=== PATIENT | female | born 1990 | race Two or more races ===

== ENCOUNTER 2020-01-08 15:20 | Emergency (ER) | payer OTHER, SELFPAY ==
[2020-01-08 15:23] VITALS: BP 146/88; PULSE 110; RESP 24; TEMP 36.9; O2SAT 95; BMI 35.4
--- NOTE | 2020-01-08 17:02 | ED.ASTHMA ---
HPI - Asthma General Chief Complaint: Asthma Stated Complaint: asthma Time Seen by Provider: 01/08/20 17:02 Source: patient Mode of arrival: ambulatory Limitations: no limitations History of Present Illness HPI Narrative: Patient states her allergies started yesterday now wheezing MD complaint: wheezing Onset (ago): day(s) (1) Severity: mild Context: allergen exposure Treatments Prior to Arrival: inhaled bronchodilator and inhaled steroid Related Data Previous Rx's Medication Instructions Recorded prednisone 60 mg PO DAILY #15 tab 01/08/20 Allergies Allergy/AdvReac Type Severity Reaction Status Date / Time latex Allergy Unknown rash Uncoded 07/08/19 00:00 SEAFOOD Allergy Unknown ANAPHYLAXIS Uncoded 12/11/19 17:08 Review of Systems Constitutional: Constitutional: Reports no additional constitutional complaints Eyes: Eyes: Reports no additional eye complaints ENT: Denies dizziness Cardiovascular: Cardiovascular: Reports no additional cardiovascular complaints Respiratory: Respiratory: Reports as per HPI Gastrointestinal: Gastrointestinal: Reports no additional gastrointestinal complaints Genitourinary: Genitourinary: Reports no additional female genitourinary complaints Musculoskeletal: Musculoskeletal: Reports no additional musculoskeletal complaints Integumentary/Breasts: Skin/Breast: Denies rash Neurologic: Reports system reviewed and no additional complaints, except as documented, Denies dizziness and Denies Sensory deficit (Neuro) Psychiatric: Psychiatric: Denies anxiety [facility] Past Medical History Medical History (Updated 01/08/20 @ 18:52 by Ulises De Anda MD) Asthma Social History Social History Smoking Status: Never smoker Use of substances other than those prescribed or required for medical reasons: No Advance Directives: No Advance Directives Information Provided: No Physical Exam Vital Signs: Vital Signs: Vital Signs Temp Pulse Resp BP Pulse Ox 01/08/20 17:17 101 H 20 96 01/08/20 15:23 98.5 F 110 H 24 H 146/88 H 95 Body Mass Index 35.4 Const: General: healthy appearing Nutritional Appearance: overweight Orientation/consciousness: oriented to person and patient oriented x3 Limitations: no limitations HENMT: Head: Yes normal to inspection Ears: external ears normal General nose exam: Normal external nose present Mouth: Normal oral and palatal mucosa present and oropharynx normal Throat: Yes posterior oropharynx normal Eyes: General: appearance normal, both eyes and all related structures Neck: Other: supple Neck: Yes normal visual inspection Chest: Chest palpation & inspection: normal inspection of the chest Resp: Other: diffuse wheezing Auscultation: wheezes Cardio: Jugular venous distension: no JVD Rate: regular rate Rhythm: regular rhythm Heart sounds: S1 normal heart sound present and S2 normal heart sound present GI: Inspection: Yes normal to inspection Palpation (GI): Soft to palpation, nontender and No hepatosplenomegaly present Auscultation: normal bowel sounds : General: Yes no CVA tenderness Back/Spine/Pelvis: Back: no CVA tenderness Skin: General skin exam: no rashes or lesions noted Neuro: General: oriented to person and patient oriented x3 Cranial nerves: Yes CN's II-XII intact bilaterally Motor exam (neuro): 5/5 motor strength present throughout Sensory Exam: No Sensory deficit (Neuro) Extrem: General: Yes normal to inspection Psych: Appearance: grossly normal Course Course Course Narrative: still wheezing Reevaluation(s) Reevaluation #1: breathing much improved Time: 18:50 MDM - Asthma MDM Narrative Medical decision making narrative: Patient with asthma exacerbation will dc home Differential Diagnosis Differential diagnosis: Likely Acute exacerbation Discharge Plan Discharge Clinical Impression: Asthma with acute exacerbation Qualifiers: Asthma severity: mild Asthma persistence: persistent Qualified Code(s): J45.31 - Mild persistent asthma with (acute) exacerbation Patient Disposition: Home, Self-Care Instructions: Asthma (ED) Prescriptions: New prednisone 20 mg tablet 60 mg PO DAILY Qty: 15 RF: 0 Referrals: Lalita Rg MD [Primary Care Provider] - 2 days
[2020-01-08] MEDS: predniSONE 20 MG TABLET 60 MG PO (17:15)
[2020-01-08 17:17] VITALS: PULSE 101; RESP 20; O2SAT 96
[2020-01-08] MEDS: Albuterol/Iprat 2.5/0.5MG 3 ML AMPUL.NEB INHALE (17:23)
[2020-01-08] MEDS: Albuterol Sulfate (0.083%) 2.5 MG/3 ML VIAL.NEB INHALE (18:19)
[2020-01-08 19:05] VITALS: PULSE 110; RESP 16; TEMP 36.4
== END 2020-01-08 19:03 | disposition home or self-care (01) ==
PROVIDERS: Emergency Provider Emergency Medicine; PCP Internal Medicine
DX: J45.31 Mild persistent asthma with (acute) exacerbation (principal)
CPT/HCPCS: 99284

== ENCOUNTER → 2020-01-20 15:36 | Outpatient (BNVA) | payer OTHER, SELFPAY | PROVIDERS: PCP Internal Medicine; Referring Provider Internal Medicine; Visit Provider Hospitalist | DX: J45.40 Moderate persistent asthma, uncomplicated (principal); Z23 Encounter for immunization | CPT/HCPCS: 90686; 99212 ==

== ENCOUNTER 2020-02-26 10:58 | Outpatient (REF) | payer OTHER, SELFPAY | END 2020-02-26 10:59 | disposition home or self-care (01) | LOC: HO.LAB 10:58 | PROVIDERS: Visit Provider Nurse Practitioner Family | DX: Z20.828 Contact with and (suspected) exposure to other viral communicable diseases (principal); J04.0 Acute laryngitis | CPT/HCPCS: U0003 ==

== ENCOUNTER → 2020-06-03 14:38 | Outpatient (BNVA) | payer OTHER, SELFPAY | PROVIDERS: PCP Internal Medicine; Visit Provider Hospitalist | DX: J45.40 Moderate persistent asthma, uncomplicated (principal); J30.9 Allergic rhinitis, unspecified; Z79.51 Long term (current) use of inhaled steroids | CPT/HCPCS: 99212 ==

== ENCOUNTER → 2021-02-03 15:21 | Outpatient (BNVA) | payer OTHER, SELFPAY | PROVIDERS: PCP Internal Medicine; Visit Provider Hospitalist | DX: J45.40 Moderate persistent asthma, uncomplicated (principal); J30.9 Allergic rhinitis, unspecified; L30.9 Dermatitis, unspecified | CPT/HCPCS: 90686; 99212 ==

== ENCOUNTER → 2021-06-30 15:31 | Outpatient (BNVA) | payer OTHER, SELFPAY | PROVIDERS: PCP Internal Medicine; Visit Provider Hospitalist | DX: J45.40 Moderate persistent asthma, uncomplicated (principal); J30.9 Allergic rhinitis, unspecified; L30.9 Dermatitis, unspecified | CPT/HCPCS: 99212 ==

== ENCOUNTER 2023-02-27 15:17 | Outpatient (AMB) | payer OTHER, SELFPAY ==
[2023-02-27 15:30] VITALS: BP 126/80; PULSE 65; O2SAT 100; BMI 31.7
--- NOTE | 2023-02-27 15:30 | MHC.PC.OV ---
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 Required: No Allergies latex Allergy (Intermediate, Verified 02/27/23 15:42) Rash seafood Allergy (Intermediate, Verified 02/27/23 15:42) tracheal swelling Medication List - Last Reconciled 02/27/23 by RALF Puckett albuterol sulfate 2.5 mg (3 mL) inhalation Q6H PRN 30 days albuterol sulfate 90 mcg/actuation 2 puffs PO Q4H PRN 30 days NS azelastine 2 sprays intranasal BID 30 days cetirizine 10 mg PO DAILY 30 days epinephrine (EpiPen 2-Cristiano) 0.3 mg (0.3 mL) IM Q10M PRN 30 days montelukast 10 mg PO BEDTIME Symbicort 160-4.5 mcg/actuation (budesonide-formoterol) 2 puffs PO BID NS umeclidinium 62.5 mcg/actuation (Incruse Ellipta) 1 inh PO DAILY Tobacco use date assessed: 02/27/23 Dental Screening Dental Screen Date: 02/27/23 Did you have a dental visit in the last 12 months?: Yes Did you have a dental problem in the last 6 months where you did not have access to dental care?: No Was dental information given to patient?: Patient has dentist HPI annual pe HPI Details Patient is a 32-year-old female who presents today for physical exam. Patient of Dr. Chapman. Medical history significant for asthma - followed by Dr. Amezcua, chronic allergic rhinitis. Today we discussed patient's need for cervical cancer screening. Patient reports that she has IUD for the past 10 years and needs to be changed. Denies shortness of breath or chest pain. No other concerns. FORMERLY [facility], [facility] Medical History Eczema Chronic allergic rhinitis Asthma Asthma Surgical History No pertinent past surgical history Family History Father Diabetes Mother In good health Maternal Grandmother Glaucoma CVD (cardiovascular disease) Diabetes Hypertension Maternal Grandfather Glaucoma Diabetes Hypertension Social History Housing: Apartment Alcohol intake: current Alcohol intake frequency: holidays/special occasions only Alcohol type: beer Patient Tobacco Use Status: Never used Tobacco e-Cigarette/Vaping Use: Never Used Second Hand Smoke Exposure: No service: No Current occupational status: employed Current occupational exposures/hazards: No Cognitive needs: No Hearing needs: No Vision needs: No Questionnaire PHQ-9 Over the last 2 weeks, how often have you been bothered by any of the following problems? 1. Little interest or pleasure in doing things: not at all 2. Feeling down, depressed, or hopeless: not at all 3. Trouble falling or staying asleep, or sleeping too much: not at all 4. Feeling tired or having little energy: not at all 5. Poor appetite or overeating: not at all 6. Feeling bad about yourself - or that you are a failure or have let yourself or your family down: not at all 7. Trouble concentrating on things, such as reading the newspaper or watching television: not at all 8. Moving or speaking so slowly that other people could have noticed. Or the opposite - being so fidgety or restless that you have been moving around a lot more than usual: not at all 9. Thoughts that you would be better off or of hurting yourself in some way: not at all Total score: 0 Depression Screening Interpretation: Negative Depression Screening Done: Yes 11578 - PHQ-9 Billing: Yes Source: Developed by Drs. Sarmad Lewis, Haritha Barvo, Arden Marcano and colleagues, with an educational get from [employer]. Thrive Questionnaire Date Thrive assessed: 02/27/23 I am a: Patient What is your living situation today?: I have a steady place to live Within the past 12 months, did the food you bought not last and you didn't have the money to get more?: Never true Within the past 12 months, did you worry whether your food would run out before you got money to buy more?: Never true Currently or been in a relationship where the following occur: no concerns reported STEPHANIE-7 AMB Questionnaire STEPHANIE-7 Date STEPHANIE - 7 assessed: 02/27/23 Feeling nervous, anxious, or on edge: 0 = Not at all Not being able to stop or control worryin = Not at all Worrying too much about different things: 0 = Not at all Trouble relaxin = Not at all Being so restless that it is hard to sit still: 0 = Not at all Becoming easily annoyed or irritable: 0 = Not at all Feeling afraid as if something awful might happen: 0 = Not at all Total STEPHANIE-7 score (0-4 normal; 5-9 mild; 10-14 moderate; 15-21 severe): 0 Source: Developed by Drs. Sarmad Lewis, Haritha Bravo, Arden Marcano and colleagues, with an educational get from [employer]. STEPHANIE-7 Assessment Billing STEPHANIE-7 Assessment Tool: STEPHANIE-7 Assessment [id number] Review of Systems Const Denies body aches, Denies chills, Denies fever(s) and Denies headache(s) Eyes Denies change in vision ENT Denies dizziness, Denies otalgia, Denies headache(s), Denies nasal discharge, Denies sinus pain and Denies sore throat Card Denies chest pain, Denies edema, Denies lightheadedness and Denies dyspnea Resp Denies cough, Denies dyspnea and Denies wheezing GI Denies abdominal pain, Denies constipation, Denies diarrhea, Denies nausea and Denies vomiting Denies dysuria Musc Denies myalgias Skin/Breast Denies rash Neuro Denies dizziness and Denies headache(s) Aller/Immun Denies wheezing Physical exam (Primary Care) Vital Signs: Last Vital Signs Pulse 65 02/27/23 15:30 BP 126/80 02/27/23 15:30 Pulse Ox 100 02/27/23 15:30 Oxygen Delivery Method Room Air 02/27/23 15:30 BMI result Body Mass Index 31.7 Tobacco/Smoking Status: Tobacco use Status Tobacco use date assessed 02/27/23 02/27/23 15:34 Patient Tobacco Use Status Never used Tobacco 02/27/23 15:34 e-Cigarette/Vaping Use Never Used 02/27/23 15:34 PHQ-9: PHQ-9 Score PHQ-9: Total score 0 02/27/23 15:57 Depression Screening Interpretation: Negative Thrive Assessment: Date of Thrive Assessment Date Thrive assessed 02/27/23 02/27/23 15:34 Currently or been in a relationship where the following occur: no concerns reported Const General: cooperative and no acute distress Orientation/consciousness: patient oriented x3 HENMT Other: Whisper test: Pass Head: Yes normocephalic and Yes atraumatic Ears: TM's normal bilaterally Face and sinus: Yes sinuses nontender Mouth: oropharynx normal and moist mucous membranes Throat: Yes posterior oropharynx normal Eyes General: appearance normal, both eyes and all related structures Pupils: Equal, round and reactive pupils present EOM: EOMs intact bilaterally Neck Neck: Yes normal visual inspection, Yes full ROM and Yes no lymphadenopathy Thyroid: Thyroid normal Resp Effort & Inspection: normal respiratory effort and able to speak in complete sentences Auscultation: clear to auscultation bilaterally, no crackles, no rales, no rhonchi and no wheezes Cardio Rate: regular rate Rhythm: regular rhythm Heart sounds: S1 normal heart sound present, S2 normal heart sound present and no murmurs GI Palpation (GI): Soft to palpation, not firm, nontender, no guarding, not rigid and no hepatosplenomegaly Auscultation: normal bowel sounds General: No CVA tenderness Back/Spine/Pelvis Back: No CVA tenderness Skin General skin exam: no rashes or lesions noted Neuro General: patient oriented x3 Cranial nerves: Yes Equal, round and reactive pupils present Gait exam (Neuro): Normal gait present Extrem General: Yes full ROM and No edema Office Procedures Vision Screening Right Eye: 20/20 Left Eye: 20/20 Bilateral: 20/20 Color: Pass Corrected: Pass Steropsis: Pass Overall Vision Screening Results: Pass Comments: none [id number] - Vision Screening Flu Questionnaire Does the patient have a severe egg allergy?: No Does the patient have severe life threatening allergies?: No Does the patient have a fever or illness today?: No Has the patient ever had Guillain-[place] Syndrome?: No Has the patient ever had any past reaction to a flu shot?: No Immunizations flu vacc [id number] 6mos up(PF) 60 mcg(15 mcgx4)/0.5 mL IM syringe Performing Provider: RALF Puckett Performing Location: [facility] Administered by: MCKENNA Peterson on 02/27/23 16:11 Dose Route Admin Location Dispensed Lot Number Expiration Date NDC Seismic Prospecting Supervisor 0.5 mL IM Left Deltoid 0.5 mL [id number] 09/23/23 [id number] Secure [employer] VIS Given Date VIS Provided VIS Publication Date 02/27/23 Single Vaccine 20 Eligibility Eligibility Date Funding Source Not [place] Eligible 02/27/23 Private Assessment and Plan Assessment & Plan (1) Presence of IUD: Code(s): Z97.5 - Presence of (intrauterine) contraceptive device Plan: Crew Person referral (2) Cervical cancer screening: Code(s): Z12.4 - Encounter for screening for malignant neoplasm of cervix Plan: Crew Person referral (3) Physical exam: Code(s): Z00.00 - Encounter for general adult medical examination without abnormal findings Plan: Repeat in 1 year Blood work ordered (4) Asthma: Code(s): J45.909 - Unspecified asthma, uncomplicated Qualifiers: Asthma severity: moderate Asthma persistence: persistent Asthma complication type: uncomplicated Qualified Code(s): J45.40 - Moderate persistent asthma, uncomplicated Plan: Stable with current treatment Continue to follow-up with pulmonology Dr. Amezcua Orders: Orders Complete Blood Count Auto Diff Today Z00.00 - Encounter for general adult medical examination without abnormal findings AMB Vision Screening Today Z01.00 - Encounter for examination of eyes and vision without abnormal findings TSH reflex Free T4 Today Z00.00 - Encounter for general adult medical examination without abnormal findings Lipid Panel Today Z00.00 - Encounter for general adult medical examination without abnormal findings Comprehensive Hooker. Panel Fast Today Z00.00 - Encounter for general adult medical examination without abnormal findings Influenza [id number] Immunization Today Z23 - Encounter for immunization Referrals CRISIS INTERVENTION SPECIALIST Referral Z12.4 - Encounter for screening for malignant neoplasm of cervix, Z97.5 - Presence of (intrauterine) contraceptive device Coding Level of Care Code Est Pt Prev Care 18-39y(23201) Diagnoses Presence of IUD Z97.5 Cervical cancer screening Z12.4 Physical exam Z00.00 Moderate persistent asthma without complication J45.40 Asthma severity: moderate Asthma persistence: persistent Asthma complication type: uncomplicated CPT Codes Vision Screening - Vision Screenin - Vision Screening ([id number]) Additional Codes STEPHANIE-7 Assessment Billing - STEPHANIE-7 Assessment Tool: STEPHANIE-7 Assessment [id number] ([id number])
== END 2023-02-27 16:10 | disposition home or self-care (01) ==
PROVIDERS: PCP Internal Medicine; Visit Provider Nurse Practitioner Family
DX: Z00.00 Encounter for general adult medical examination without abnormal findings (principal); J45.40 Moderate persistent asthma, uncomplicated; Z97.5 Presence of (intrauterine) contraceptive device; Z23 Encounter for immunization; Z01.00 Encounter for examination of eyes and vision without abnormal findings
CPT/HCPCS: 90471; 90686; 99173; 99395

== ENCOUNTER 2023-04-08 11:47 | Emergency (ER) | payer OTHER, SELFPAY ==
--- NOTE | 2023-04-08 13:10 | ED_ITS ---
HPI - Nausea/Vomiting/Diarrhea General Chief complaint: Abdominal Pain Stated complaint: vomiting, ?food poisoning Related Data Previous Rx's Medication Instructions Recorded epinephrine 0.3 mg/0.3 mL 0.3 mg (0.3 mL) IM Q10M PRN 06/03/20 injection, auto-injector (EpiPen anaphylaxis 30 days #2 ea 2-Cristiano) azelastine 137 mcg (0.1 %) nasal 2 spray intranasal BID 30 days #30 02/03/21 spray aerosol mL albuterol sulfate 2.5 mg/3 mL 2.5 mg (3 mL) inhalation Q6H PRN 06/30/21 (0.083 %) solution for nebulization shortness of breath or wheezing 30 days #180 mL albuterol sulfate 90 mcg/actuation 2 puff PO Q4H PRN for wheezing 30 01/24/22 aerosol inhaler days #1 ea montelukast 10 mg tablet 10 mg PO BEDTIME #90 tabs 06/22/22 umeclidinium 62.5 mcg/actuation 1 inh PO DAILY #90 ea 07/03/22 blister powder for inhalation (Incruse Ellipta) Symbicort 160 mcg-4.5 2 puff PO BID #30.6 ea 08/09/22 mcg/actuation HFA aerosol inhaler (budesonide-formoterol) cetirizine 10 mg tablet 10 mg PO DAILY 30 days #30 tabs 03/03/23 Allergies Allergy/AdvReac Type Severity Reaction Status Date / Time latex Allergy Intermediate Rash Verified 02/27/23 15:42 seafood Allergy Intermediate tracheal Verified 02/27/23 15:42 swelling PMFSH Past Medical History Onset Date is defined in the Problem List Problems that require an onset date and time if occurred within 24 hrs of arrival to the ED Aortic Dissection and Rupture; Neurologic impairment; Cardiopulmonary Arrest; Endotracheal Intubation; Insertion or Replacement of Mechanical Circulatory Assist Device Medical History Eczema Chronic allergic rhinitis Asthma Asthma Surgical History No pertinent past surgical history Family History Family History Father Diabetes Mother In good health Maternal Grandmother Glaucoma CVD (cardiovascular disease) Diabetes Hypertension Maternal Grandfather Glaucoma Diabetes Hypertension Social History Social History Housing: Apartment Alcohol intake: current Alcohol intake frequency: holidays/special occasions only Alcohol type: beer Patient Tobacco Use Status: Never used Tobacco e-Cigarette/Vaping Use: Never Used Second Hand Smoke Exposure: No Advance Directives: No Advance Directives Information Provided: No service: No Current occupational status: employed Current occupational exposures/hazards: No Cognitive needs: No Hearing needs: No Vision needs: No Physical Exam 2 Vital Signs: Vital Signs: Last Vital Signs Temp 98.5 F 04/08/23 13:12 Pulse 65 04/08/23 13:12 Resp 16 04/08/23 13:12 BP 117/76 04/08/23 13:12 Pulse Ox 100 04/08/23 13:12 O2 Del Method Room Air 04/08/23 13:12 BMI result Body Mass Index 31.9 Course Course Course Narrative: This is an RME: Additional HPI, ROS, PE not included below will be deferred to primary provider. This is a 20-yrpw-jdd-female, with a hx of asthma, presenting to the ER with a complaint of nausea, vomiting since 1:00AM this morning. She ate pizza and chicken wings last night. Unable to tolerate PO. VSS. actiely vomiting in triage Plan: Labs, UA, medicated with zofran in triage Medications Administered Discontinued Medications Generic Name Dose Route Start Last Admin Trade Name Yissel PRN Reason Stop Dose Admin Ondansetron HCl 4 mg 04/08/23 13:12 04/08/23 13:20 Ondansetron Hcl 4 Mg/2 Ml Vial IVPUSH 04/08/23 13:13 Not Given ONCE ONE Ondansetron HCl 4 mg 04/08/23 13:18 04/08/23 13:20 Ondansetron Odt 4 Mg Tab.Rapdis TRANSLINGU 04/08/23 13:19 4 mg ONCE ONE Administration Medical Decision Making Lab Data 04/08/23 13:33 04/08/23 13:33 Labs: Lab Results 04/08/23 Range/Units 13:33 WBC 10.6 (4.8-10.8) X10*3/uL RBC 4.84 (4.20-5.50) X10*6/uL Hgb 14.7 (12.0-16.0) g/dl Hct 43.7 (37.0-47.0) % MCV 90.3 (80.0-98.0) fL MCH 30.4 (27.0-33.0) pg MCHC 33.6 (31.0-35.0) g/dl RDW 12.4 (11.0-16.0) % Plt Count 393 (160-400) X10*3/uL MPV 9.0 L (9.4-12.3) fL Immature Gran % (Auto) 0.2 (0.0-0.4) % Neut % (Auto) 89.7 H (45-73) % Lymph % (Auto) 7.5 L (20-40) % Harnett % (Auto) 2.0 (2-11) % Eos % (Auto) 0.1 (0-4) % Baso % (Auto) 0.5 (0-2) % Lymph # (Auto) 0.8 L (1.2-4.9) X10*3/uL Harnett # (Auto) 0.2 (0.1-1.2) X10*3/uL Eos # (Auto) 0.0 (0.0-0.4) X10*3/uL Baso # (Auto) 0.1 (0.0-0.2) X10*3/uL Abs Immat Gran (auto) 0.02 (0.00-0.03) X10*3/uL Absolute Neuts (auto) 9.5 H (2.0-8.3) x10*3/uL Absolute Nucleated RBC 0.000 (0.0-0.012) X10*3/uL Nucleated RBC % (auto) 0.0 (0.0-0.2) /100WBC Sodium 141 (135-145) mmol/L Potassium 4.1 (3.3-5.1) mmol/L Chloride 106 (96-108) mmol/L Carbon Dioxide 23 (22-29) mmol/L Anion Gap 16 (12-20) BUN 15 (9-16) mg/dL Creatinine 0.84 (0.5-1.4) mg/dL Estim Creat Clear Calc 96.4 Estimated GFR > 60 Random Glucose 119 H (60-115) mg/dL Calcium 10.0 (8.4-10.2) mg/dL Total Bilirubin 0.5 (0.0-1.0) mg/dL Direct Bilirubin 0.2 (0.0-0.5) mg/dL AST 16 (5-31) U/L ALT 18 (0-31) U/L Alkaline Phosphatase 62 (39-117) U/L Troponin I High Sens < 2.7 (<3.5-17.0) ng/L Total Protein 8.0 (6.5-8.0) g/dL Albumin 4.7 (3.5-5.0) g/dL Lipase 15 (8-78) U/L Beta HCG, Quant < 2 mIU/mL Discharge Plan Discharge Clinical Impression: Nausea & vomiting Patient Disposition: Left W/O Completing Treatment Prescriptions: No Action albuterol sulfate 90 mcg/actuation HFA aerosol inhaler 2 puff PO Q4H PRN (Reason: for wheezing) 30 Days Qty: 1 11RF montelukast 10 mg tablet 10 mg PO BEDTIME Qty: 90 3RF Incruse Ellipta 62.5 mcg/actuation blister with device 1 inh PO DAILY Qty: 90 3RF budesonide-formoterol [Symbicort] 160-4.5 mcg/actuation HFA aerosol inhaler 2 puff PO BID Qty: 30.6 3RF cetirizine 10 mg tablet 10 mg PO DAILY 30 Days Qty: 30 11RF epinephrine [EpiPen 2-Cristiano] 0.3 mg/0.3 mL auto-injector 0.3 mg IM Q10M PRN (Reason: anaphylaxis) 30 Days Qty: 2 6RF Rx Instructions: for 2 doses azelastine 137 mcg (0.1 %) aerosol,spray 2 spray intranasal BID 30 Days Qty: 30 6RF Rx Instructions: administer into each nostril albuterol sulfate 2.5 mg /3 mL (0.083 %) solution for nebulization 2.5 mg inhalation Q6H PRN (Reason: shortness of breath or wheezing) 30 Days Qty: 180 11RF Discharge Date/Time: 04/08/23 21:54
[2023-04-08 13:12] VITALS: BP 117/76; PULSE 65; RESP 16; TEMP 36.9; O2SAT 100; BMI 31.9
--- NOTE | 2023-04-08 13:12 | ECG_ITS ---
Test Reason : EPIGASTRIC PAIN Blood Pressure : / mmHG Vent. Rate : 062 BPM Atrial Rate : 062 BPM P-R Int : 144 ms QRS Dur : 080 ms QT Int : 458 ms P-R-T Axes : 069 058 043 degrees QTc Int : 464 ms Normal sinus rhythm with sinus arrhythmia Normal ECG No previous ECGs available Referred By: Liza Franklin Electronically Signed By:ROSA JAMES
[2023-04-08] MEDS: Ondansetron ODT 4 MG TAB.RAPDIS TRANSLINGU (13:20)
[2023-04-08 13:38] LABS: MANUAL DIFF FLAG NO
[2023-04-08 13:39] LABS: Basophils Absolute Auto 0.1 X10*3/uL (0.0-0.2); Basophils Percent Auto 0.5 % (0-2); Eosinophils Percent Auto 0.1 % (0-4); Hematocrit 43.7 % (37.0-47.0); Hemoglobin 14.7 g/dl (12.0-16.0); Imm Gran Abs Auto 0.02 X10*3/uL (0.00-0.03); Imm Gran Pct Auto 0.2 % (0.0-0.4); Lymphocytes Absolute Auto 0.8 X10*3/uL (1.2-4.9); Lymphocytes Percent Auto 7.5 % (20-40); Mean Corpuscular HGB Conc 33.6 g/dl (31.0-35.0); Mean Corpuscular Hemoglobin 30.4 pg (27.0-33.0); Mean Corpuscular Volume 90.3 fL (80.0-98.0); Monocytes Absolute Auto 0.2 X10*3/uL (0.1-1.2); Neutrophils Absolute Auto 9.5 x10*3/uL (2.0-8.3); Neutrophils Percent Auto 89.7 % (45-73); Platelet Count 393 X10*3/uL (160-400); Red Blood Count 4.84 X10*6/uL (4.20-5.50); Red Cell Distribution Width 12.4 % (11.0-16.0); White Blood Count 10.6 X10*3/uL (4.8-10.8)
[2023-04-08 14:02] LABS: Alanine Aminotransferase 18 U/L (0-31); Albumin Level 4.7 g/dL (3.5-5.0); Alkaline Phosphatase 62 U/L (39-117); Anion Gap 16 (12-20); Aspartate Amino Transferase 16 U/L (5-31); Bilirubin Direct 0.2 mg/dL (0.0-0.5); Bilirubin Total 0.5 mg/dL (0.0-1.0); Blood Urea Nitrogen 15 mg/dL (9-16); Carbon Dioxide 23 mmol/L (22-29); Chloride 106 mmol/L (96-108); Creatinine Clr Calc Pharmacy 96.4; Estimated Glomerular Filt Rate > 60; Glucose Random 119 mg/dL (60-115); HCG Quantitative < 2 mIU/mL; Lipase 15 U/L (8-78); Potassium 4.1 mmol/L (3.3-5.1); Sodium 141 mmol/L (135-145); Troponin-I High Sensitivity < 2.7 ng/L (<3.5-17.0)
--- NOTE | 2023-04-08 21:54 | PC.NURSE ---
Called in WR x2 @[phone] with no answer
== END 2023-04-08 21:54 | disposition left against medical advice (07) ==
PROVIDERS: Physician Assistant Medical; Emergency Provider Emergency Medicine; PCP Internal Medicine
DX: R11.2 Nausea with vomiting, unspecified (principal); J45.909 Unspecified asthma, uncomplicated; Z79.899 Other long term (current) drug therapy
CPT/HCPCS: 36415; 80048; 80076; 83690; 84484; 84702; 85025; 93005; 99283

== ENCOUNTER → 2023-04-08 13:12 | Outpatient (BNV) | payer OTHER, SELFPAY | PROVIDERS: Emergency Provider Emergency Medicine; PCP Internal Medicine; Visit Provider Internal Medicine | DX: R10.13 Epigastric pain (principal); R11.2 Nausea with vomiting, unspecified | CPT/HCPCS: 93010 ==

== ENCOUNTER 2023-05-11 14:38 | Outpatient (AMB) | payer OTHER, SELFPAY ==
--- NOTE | 2023-05-11 14:44 | A.OFFVIS_ITS ---
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 Doing well with no concerns. She tries to eat healthy and stays active with exercise. Regular monthly menses. Uses the ParaGard for control which is now 10 years old, she is interested in having an exchange scheduled. Currently is sexually active. She denies vaginal itching and irritation. STI screening offered; she accepts. Denies family history of ovarian or colon cancer. Remote FH of breast cancer. Last pap smear 2019, negative. [facility] Medical History Eczema Chronic allergic rhinitis Asthma Surgical History No pertinent past surgical history Family History Father Diabetes Mother In good health Maternal Grandmother Glaucoma CVD (cardiovascular disease) Diabetes Hypertension Maternal Grandfather Glaucoma Diabetes Hypertension Family/Other Breast cancer Social History Household Members: Spouse and Children Housing: House Alcohol intake: current Alcohol intake frequency: holidays/special occasions only Alcohol type: beer Patient Tobacco Use Status: Never used Tobacco e-Cigarette/Vaping Use: Never Used Second Hand Smoke Exposure: No service: No 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 Sexual orientation: Straight/Heterosexual Gender identity: Female Cognitive needs: No Hearing needs: No Vision needs: No Female Reproductive History Menstrual Age of Menarche: 10 Duration of menses: 3-5 days Date of last menstrual period: 05/01/23 control method: copper IUCD Total pregnancies: 2 Full term: 2 Number of Living Children: 2 Date of last pap smear: 04/15/19 Review of Systems Const All systems reviewed & are unremarkable except as noted in HPI and below Reports as per HPI Eyes Reports no additional complaints ENT Reports no additional complaints Card Reports no additional complaints Resp Reports no additional complaints GI Reports as per HPI and Reports no additional complaints Reports as per HPI Musc Reports no additional complaints Skin/Breast Reports as per HPI Neuro Reports no additional complaints Psych Reports no additional complaints Endo Reports no additional complaints Festus/Lymph Reports no additional complaints Aller/Immun Reports no additional complaints Physical Exam Vital Signs: Last Vital Signs BP 116/70 05/11/23 14:45 BMI result Body Mass Index 31.6 Const General: cooperative, healthy appearing, no acute distress, well developed and alert Orientation/consciousness: patient oriented x3 HEENT Head: Yes normal to inspection Eyes General: appearance normal, both eyes and all related structures Neck Neck: Yes normal visual inspection Thyroid: Thyroid normal Chest Chest palpation & inspection: normal inspection of the chest and other (no puckering, dimpling, peau de orange, retraction, discharge, masses) Breast/axilla inspection: normal inspection of the breasts Breast/axilla palpation: normal palpation of the breasts Resp Effort & Inspection: normal respiratory effort GI Inspection: Yes normal to inspection Palpation (GI): Soft to palpation Rectal Exam - Female: deferred General: Yes bladder normal to palpation External Female Exam: normal external appearance and normal appearance of the urethra Speculum Exam - Vagina: normal appearance of the vagina, normal palpation and normal vaginal discharge Speculum Exam - Cervix: normal appearance of the cervix, normal palpation and Other cervical findings present (IUD strings present) Bimanual exam- vagina & uterus: normal bimanual exam, normal palpation, uterine size normal, bladder normal to palpation, normal palpation and non-tender Bimanual Exam- Adnexa, other: no masses Skin General skin exam: no rashes or lesions noted Rashes: no rashes Neuro General: patient oriented x3 Cognition (Neuro): normal cognition Extrem General: Yes normal to inspection Psych Attitude: cooperative Thought process: Normal thought process present Assessment & Plan Assessment & Plan (1) Encounter for well woman exam with routine gynecological exam: Code(s): Z01.419 - Encounter for gynecological examination (general) (routine) without abnormal findings Plan Discussed: Current recommendations for pap smears per ASCCP guidelines. Breast awareness and periodic breast exams. Maintain a healthy lifestyle including a well balanced diet and routine exercise. Use condoms for STI and prevention. She declines STD blood work today. Prior authorization for ParaGard device to be signed today. Advised to have something to eat and drink and take 3 ibuprofen with food 1 hour before her insertion time. Patient verbalizes understanding and agrees to the plan of care. She was given opportunity to ask questions and all questions were answered to the best of my ability. 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 This note is constructed using voice recognition software. While every effort has been made to ensure accuracy, hyperbaric welder diver errors may have been included. Orders: Orders Pap Smear Today Z01.419 - Encounter for gynecological examination (general) (routine) without abnormal findings CT NG by PCR Today Z01.419 - Encounter for gynecological examination (general) (routine) without abnormal findings Coding Level of Care Code New Pt Prev Care 18-39yr(06804 Diagnoses Encounter for well woman exam with routine gynecological exam Z01.419
[2023-05-11 14:45] VITALS: BP 116/70; BMI 31.6
== END 2023-05-11 15:27 | disposition home or self-care (01) ==
LOC: HO.HWS 14:38
PROVIDERS: PCP Internal Medicine; Visit Provider Advanced Practice Midwife
DX: Z01.419 Encounter for gynecological examination (general) (routine) without abnormal findings (principal)
CPT/HCPCS: 99385

== ENCOUNTER 2023-05-11 14:38 | Outpatient (REF) | payer OTHER, SELFPAY ==
[2023-05-12 09:50] LABS: CT PCR NOT DETECTED (Not Detect.); NG PCR NOT DETECTED (Not Detect.)
[2023-05-19 03:59] LABS: HPV mRNA E6/E7 rflx Not Detected (Not Detected)
== END 2023-05-11 14:39 | disposition home or self-care (01) ==
LOC: HO.LNP 14:38
PROVIDERS: PCP Internal Medicine; Visit Provider Advanced Practice Midwife
DX: Z01.419 Encounter for gynecological examination (general) (routine) without abnormal findings (principal)
CPT/HCPCS: 0353U; 87624; 88142; 99385

== ENCOUNTER 2024-01-01 13:18 | Outpatient (AMB) | payer OTHER, SELFPAY ==
[2024-01-01 13:22] VITALS: BP 100/60; PULSE 88; O2SAT 97; BMI 29.7
--- NOTE | 2024-01-01 13:22 | MHC.OFFVIS ---
Vital Signs 01/01/24 13:22 Height 5 ft 3 in Weight 167 lb 8.821 oz BMI 29.7 BP 100/60 Blood Pressure Location Rt brachial Position Sitting Pulse 88 Pulse Source Pulse Oximeter Pulse Oximetry (%) 97 Oxygen Delivery Method Room Air Intake Visit Reasons: Asthma Community Health Counselor Required: No Allergies latex Allergy (Intermediate, Verified 01/01/24 13:25) Rash seafood Allergy (Intermediate, Verified 01/01/24 13:25) tracheal swelling HPI Comments Details: 06/03/2020 The patient is a 33-year-old woman here for pulmonary follow-up visit. Overall the patient has been doing well. She does have significant allergic asthma moderately persistent. She has been on the long-acting beta agonist inhaled cortical steroid and also long-acting muscarinic antagonist. She does require her short-acting beta agonists several times a week anyway. I am concerned now with the spring season coming due to her significant allergies. She did follow-up with Allergy immunology. She was supposed to go back and get tested was skin tested. However she never was called. She make an effort to call to see was going on. She may be a great candidate for allergy shots. She can also consider biologic therapies if her symptoms are worsening. 02/03/2021 the patient is here for a pulmonary follow-up visit. The patient overall has been doing better. She does have significant asthma significant allergies. Her allergy testings were very abnormal. She did follow-up with an cardiovascular disease specialist. She did not want any allergy shots at this time. We did talk about potential biologic therapy such as Dupixent which may be helpful in treating her severe persistent asthma in addition to her eczema. The patient does have chronic rhinitis and postnasal drip moderate in severity. Does have a cough with it. We will optimize her allergy therapy. if the patient continues to be symptomatic after optimizing respiratory therapy then we can consider biologic therapy read both her eosinophils were elevated and her allergy testing was very abnormal with an elevated IgE level. I do take Dupixent may be a good option for her. In the meantime she is going to continue with current respiratory regimen. She is responding well to the Symbicort and Incruse. She continues with the Zyrtec in addition to the singular. Will add Astelin nasal spray and we did review the instructions on how to use the Neti bottle. Unfortunately she has significant allergies to dogs. She does have a dog at home but is a family pet and she cannot give more way. Therefore she tries to stay away from the dog. She does have an EpiPen available for any severe episodes of bronchospasms. 01/01/2024 the patient is here for a pulmonary follow-up visit. The patient has been lost to follow-up. She has had significant allergies and asthma. She has been on Symbicort and also Singulair. Seems like her symptoms are getting worse and she needs a refill so she had to make an appointment. Since we last spoke we did refer her to an cardiovascular disease specialist because of her significant allergies for allergy shots and potential biologic therapy. However, after she met with them was too much time commitment and she could not commit at the time so she opted not to. The patient does have significant allergies. She does carry an EpiPen. The patient will have additional blood work to assess her allergy level. She continues to have symptoms on a daily basis and requires a rescue inhaler on a daily basis for her severe persistent asthma. I do believe she would be a great candidate for Dupixent specially since she has allergic dermatitis, chronic rhinitis and also severe persistent asthma. She has been maximizing respiratory therapy and has required prednisone. Therefore, at this point will go ahead and request blood work and will going to look into starting her likely in Dupixent. [facility] Medical History Eczema Chronic allergic rhinitis Asthma Surgical History No pertinent past surgical history Family History Father Diabetes Mother In good health Maternal Grandmother Glaucoma CVD (cardiovascular disease) Diabetes Hypertension Maternal Grandfather Glaucoma Diabetes Hypertension Family/Other Breast cancer Social History Household Members: Spouse and Children Housing: House Alcohol intake: current Alcohol intake frequency: holidays/special occasions only Alcohol type: beer Patient Tobacco Use Status: Never used Tobacco e-Cigarette/Vaping Use: Never Used Second Hand Smoke Exposure: No service: No 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 Sexual orientation: Straight/Heterosexual Gender identity: Female Cognitive needs: No Hearing needs: No Vision needs: No Female Reproductive History Menstrual Age of Menarche: 10 Review of Systems Const Denies night sweats ENT Denies change in voice, Denies lip swelling, Denies mouth pain, Reports nasal congestion, Reports nasal discharge, Reports post nasal drip and Denies tongue swelling Card Denies chest pain Resp Reports cough and Reports wheezing GI Denies abdominal pain Musc Denies no additional complaints Skin/Breast Reports rash Neuro Denies Neuro-related abnormal movements Psych Denies no additional complaints Festus/Lymph Denies easy bleeding and Denies lymphadenopathy Aller/Immun Denies lip swelling, Denies tongue swelling and Reports wheezing Physical Exam Vital Signs: Last Vital Signs Pulse 88 01/01/24 13:22 BP 100/60 01/01/24 13:22 Pulse Ox 97 01/01/24 13:22 Oxygen Delivery Method Room Air 01/01/24 13:22 BMI result Body Mass Index 29.7 Const General: alert HEENT General nose exam: Abnormal mucous membranes and turbinates present boggy and erythematous and no nasal polyps Neck Neck: Yes normal visual inspection, Yes full ROM and Yes no lymphadenopathy Chest Chest palpation & inspection: normal inspection of the chest Resp Effort & Inspection: prolonged expiratory phase Auscultation: wheezes and diminished lung sounds Cardio Rate: regular rate Rhythm: regular rhythm Heart sounds: S1 normal heart sound present and S2 normal heart sound present GI Palpation (GI): Soft to palpation and nontender Auscultation: normal bowel sounds General: Yes no CVA tenderness Back/Spine/Pelvis Back: no CVA tenderness Skin General skin exam: rashes and/or lesions noted Office Procedures Flu Questionnaire Does the patient have a severe egg allergy?: No Does the patient have severe life threatening allergies?: No Does the patient have a fever or illness today?: No Has the patient ever had Guillain-[place] Syndrome?: No Has the patient ever had any past reaction to a flu shot?: No Assessment & Plan Assessment & Plan (1) Chronic allergic rhinitis: Code(s): J30.9 - Allergic rhinitis, unspecified Category: Medical (2) Asthma: Comment: duplicate Code(s): J45.909 - Unspecified asthma, uncomplicated Category: Medical Qualifiers: Asthma complication type: uncomplicated Asthma persistence: persistent Asthma severity: moderate Qualified Code(s): J45.40 - Moderate persistent asthma, uncomplicated (3) Eczema: Code(s): L30.9 - Dermatitis, unspecified Category: Medical Qualifiers: Eczema type: flexural Qualified Code(s): L20.82 - Flexural eczema Plan Continue fluticasone nasal spray continue Zyrtec continue montelukast stop Symbicort and Incruse start Breztri short acting beta agonist as needed Bloodwork Would benefit from Biologic therapy: Dupixent follow-up in 6 months Orders: Orders Immunoglobulin E Today J45.40 - Moderate persistent asthma, uncomplicated Influenza [id number] Immunization Today J45.40 - Moderate persistent asthma, uncomplicated Complete Blood Count Auto Diff Today J45.40 - Moderate persistent asthma, uncomplicated Erythrocyte Sedimentation Rate Today J45.40 - Moderate persistent asthma, uncomplicated Medications: New ybbntuwvdu-xhthlipj-[id number] 160-9-4.8 mcg/actuation (Breztri Aerosphere) 2 inhalations inhalation BID 10.7 grams 11RF Coding Level of Care Code Est Pt Level 4 (54984) Diagnoses Chronic allergic rhinitis J30.9 Moderate persistent asthma without complication J45.40 Asthma complication type: uncomplicated Asthma persistence: persistent Asthma severity: moderate Flexural eczema L20.82 Eczema type: flexural Time Spent (min) 17
== END 2024-01-01 13:49 | disposition home or self-care (01) ==
PROVIDERS: PCP Internal Medicine; Visit Provider Hospitalist
DX: J30.9 Allergic rhinitis, unspecified (principal); J45.40 Moderate persistent asthma, uncomplicated; L20.82 Flexural eczema
CPT/HCPCS: 99214

== ENCOUNTER → 2024-01-01 13:18 | Outpatient (BNVA) | payer OTHER, SELFPAY | LOC: CF 01-02 08:55 | PROVIDERS: PCP Internal Medicine; Visit Provider Hospitalist | DX: J45.40 Moderate persistent asthma, uncomplicated (principal); Z23 Encounter for immunization; J30.9 Allergic rhinitis, unspecified; L20.82 Flexural eczema | CPT/HCPCS: 90471; 90656; 99212 ==

== ENCOUNTER 2024-01-02 08:56 | Outpatient (REF) | payer OTHER, SELFPAY ==
[2024-01-02 09:12] LABS: MANUAL DIFF FLAG NO
[2024-01-02 10:13] LABS: Basophils Absolute Auto 0.1 X10*3/uL (0.0-0.2); Eosinophils Absolute Auto 0.5 X10*3/uL (0.0-0.4); Eosinophils Percent Auto 7.3 % (0-4); Hematocrit 43.3 % (37.0-47.0); Hemoglobin 15.2 g/dl (12.0-16.0); Imm Gran Abs Auto 0.02 X10*3/uL (0.00-0.03); Imm Gran Pct Auto 0.3 % (0.0-0.4); Lymphocytes Absolute Auto 1.6 X10*3/uL (1.2-4.9); Mean Corpuscular HGB Conc 35.1 g/dl (31.0-35.0); Mean Corpuscular Hemoglobin 32.6 pg (27.0-33.0); Mean Corpuscular Volume 92.9 fL (80.0-98.0); Mean Platelet Volume 9.2 fL (9.4-12.3); Monocytes Absolute Auto 0.6 X10*3/uL (0.1-1.2); Monocytes Percent Auto 8.9 % (2-11); Neutrophils Percent Auto 58.5 % (45-73); Platelet Count 428 X10*3/uL (160-400); Red Blood Count 4.66 X10*6/uL (4.20-5.50); Red Cell Distribution Width 11.9 % (11.0-16.0); White Blood Count 6.8 X10*3/uL (4.8-10.8)
[2024-01-02 10:44] LABS: Erythrocyte Sedimentation Rate 6 MM/HR (0-20)
[2024-01-04 20:57] LABS: Immunoglobulin E 995 kU/L (<OR=114)
== END 2024-01-02 08:57 | disposition home or self-care (01) ==
LOC: HO.LAB 08:56
PROVIDERS: Visit Provider Hospitalist
DX: J45.40 Moderate persistent asthma, uncomplicated (principal)
CPT/HCPCS: 36415; 82785; 85025; 85652

== ENCOUNTER 2024-02-16 20:30 | Emergency (ER) | payer OTHER, SELFPAY ==
--- NOTE | ~2024-02-16 | XR_ITS ---
EXAMINATION: XR CHEST CLINICAL INFORMATION: sob COMPARISON: Chest radiograph dated October 05, 2019. TECHNIQUE: Frontal view of the chest was obtained. FINDINGS: The heart is normal in size. The lungs are clear. There is no pleural effusion or pneumothorax. No acute osseous abnormality. XR/XR chest 1V IMPRESSION: Stable appearance of the heart and lungs. No active disease. Electronically signed by: Andreas Heaton DO 02/16/2024 10:46 PM [facility]
--- NOTE | 2024-02-16 20:31 | ED.ASTHMA ---
HPI - Asthma General Chief Complaint: Asthma Stated Complaint: asthma Time Seen by Provider: 02/16/24 20:43 Source: patient Mode of arrival: ambulatory Limitations: no limitations History of Present Illness ED Provider: jeannie MANRIQUEZ Narrative: Patient with history of asthma with recurrent episodes time patient started feeling shortness a breath since earlier today due fever no other family member sick feels same as in the past with chest tightness shortness a breath on arrival patient was wheezing Related Data Home Medications ?Medication ?Instructions ?Recorded ?Confirmed nebulizers 01/01/24 Previous Rx's ?Medication ?Instructions ?Recorded epinephrine 0.3 mg/0.3 mL 0.3 mg (0.3 mL) IM Q10M PRN 06/03/20 injection, auto-injector (EpiPen anaphylaxis 30 days #2 ea 2-Cristiano) albuterol sulfate 2.5 mg/3 mL 2.5 mg (3 mL) inhalation Q6H PRN 06/30/21 (0.083 %) solution for nebulization shortness of breath or wheezing 30 days #180 mL montelukast 10 mg tablet 10 mg PO BEDTIME #90 tabs 06/22/22 umeclidinium 62.5 mcg/actuation 1 inh PO DAILY #90 ea 07/03/22 blister powder for inhalation (Incruse Ellipta) Symbicort 160 mcg-4.5 2 puff PO BID #30.6 ea 08/09/22 mcg/actuation HFA aerosol inhaler (budesonide-formoterol) cetirizine 10 mg tablet 10 mg PO DAILY 30 days #30 tabs 03/03/23 budesonide 160 mcg-glycopyr 9 2 inh inhalation BID #10.7 grams 01/01/24 mcg-formot 4.8 mcg/actuation HFA inhaler (Breztri Aerosphere) fluticasone fur. 200 mcg-umeclid 1 inh inhalation DAILY 30 days #60 01/11/24 62.5 mcg-vilant 25 mcg ea inhalat.powder (Trelegy Ellipta) albuterol sulfate 90 mcg/actuation 2 puff PO Q4H PRN for wheezing 30 01/22/24 aerosol inhaler days #1 ea prednisone 20 mg tablet 40 mg (2 x 20 mg) PO DAILY #10 tabs 02/16/24 Allergies Allergy/AdvReac Type Severity Reaction Status Date / Time latex Allergy Intermediate Rash Verified 02/16/24 20:39 seafood Allergy Intermediate tracheal Verified 02/16/24 20:39 swelling Review of Systems Review of Systems: Yes all other systems are reviewed and are negative [facility] Past Medical History Medical History Eczema Chronic allergic rhinitis Asthma Surgical History No pertinent past surgical history Family History Family History Father Diabetes Mother In good health Maternal Grandmother Glaucoma CVD (cardiovascular disease) Diabetes Hypertension Maternal Grandfather Glaucoma Diabetes Hypertension Family/Other Breast cancer Social History Social History Household Members: Spouse and Children Housing: House Alcohol intake: current Alcohol intake frequency: holidays/special occasions only Alcohol type: beer Patient Tobacco Use Status: Never used Tobacco Smoked in Last 30 Days: No e-Cigarette/Vaping Use: Never Used Second Hand Smoke Exposure: No Use of substances other than those prescribed or required for medical reasons: No Advance Directives: No Advance Directives Information Provided: No Do you have a plan to hurt others: No Plan service: No 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 Oriented X3. No acute distress. Eyes: No pallor or icterus ENT: Pharynx normal. Oral Mucosa moist Neck: Normal inspection. Neck supple. CVS: Normal heart rate and rhythm. Pulses normal. Respiratory: No respiratory distress. Equal air entry bilateral, bilateral equal air entry with wheezing Abdomen: Soft and nontender. Bowel sounds are present, no mass palpable, no CVA tenderness Skin: Skin warm and dry. Normal skin color. Normal skin turgor. Extremities: No lower extremity edema. No calf tenderness Neuro: Oriented X 3. No motor deficit. Course Course Course Narrative: This is a Rapid Medical Exam performed in triage by Ade Bello PA-C. Full HPI, ROS and PE to be performed by primary ED provider. 33yo F w/PMHx asthma presenting to the ED c/o cough, chest tightness x3 hrs. 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 Denies travel, fever, sick contacts PE: tachycardic, decreased lung sounds throughout with expiratory wheeze Plan: EKG, labs, viral testing, CXR, ED bronch protocol, IV Solu-Medrol Medications Administered Discontinued Medications Generic Name Dose Route Start Last Admin Trade Name Freq PRN Reason Stop Dose Admin Albuterol Sulfate 7.5 mg/ 10 mg 02/16/24 20:44 02/16/24 20:53 Albuterol Sulfate 2.5 mg INHALE 02/16/24 20:45 10 mg ONCE ONE Administration Magnesium Sulfate 2 gm in 50 mls @ 150 mls/hr 02/16/24 21:04 02/16/24 21:30 Magnesium Sulfate/H2o IV 02/16/24 21:23 Infused ONCE ONE Infusion Methylprednisolone Sodium Succinate 125 mg 02/16/24 21:04 02/16/24 21:09 Methylprednisolone Sod Succ 125 Mg/2 Ml Vial IVPUSH 02/16/24 21:05 125 mg ONCE ONE Administration Medical Decision Making Medical Decision Making [facility] Narrative: Patient with asthma exacerbation feeling much better after nebulizer treatment and IV magnesium and steroids will discharge patient on steroids Lab Data [facility] Lab Attestation statement: I reviewed the patient's lab results. 02/16/24 21:02 02/16/24 21:02 Labs: Lab Results 02/16/24 Range/Units 21:02 WBC 6.1 (4.8-10.8) X10*3/uL RBC 4.07 L (4.20-5.50) X10*6/uL Hgb 12.5 (12.0-16.0) g/dl Hct 36.7 L (37.0-47.0) % MCV 90.2 (80.0-98.0) fL MCH 30.7 (27.0-33.0) pg MCHC 34.1 (31.0-35.0) g/dl RDW 12.3 (11.0-16.0) % Plt Count 315 D (160-400) X10*3/uL MPV 8.6 L (9.4-12.3) fL Immature Gran % (Auto) 0.2 (0.0-0.4) % Neut % (Auto) 56.7 (45-73) % Lymph % (Auto) 30.3 (20-40) % [place] % (Auto) 6.4 (2-11) % Eos % (Auto) 5.7 H (0-4) % Baso % (Auto) 0.7 (0-2) % Lymph # (Auto) 1.9 (1.2-4.9) X10*3/uL [place] # (Auto) 0.4 (0.1-1.2) X10*3/uL Eos # (Auto) 0.4 (0.0-0.4) X10*3/uL Baso # (Auto) 0.0 (0.0-0.2) X10*3/uL Abs Immat Gran (auto) 0.01 (0.00-0.03) X10*3/uL Absolute Neuts (auto) 3.5 (2.0-8.3) x10*3/uL Absolute Nucleated RBC 0.000 (0.0-0.012) X10*3/uL Nucleated RBC % (auto) 0.0 (0.0-0.2) /100WBC Sodium 141 (135-145) mmol/L Potassium 3.0 L D (3.3-5.1) mmol/L Chloride 106 (96-108) mmol/L Carbon Dioxide 22 (22-29) mmol/L Anion Gap 16 (12-20) BUN 12 (9-16) mg/dL Creatinine 0.78 (0.5-1.4) mg/dL Estim Creat Clear Calc 91.8 Estimated GFR > 60 Random Glucose 87 (60-115) mg/dL Calcium 9.3 D (8.4-10.2) mg/dL Troponin I High Sens < 2.7 (<3.5-17.0) ng/L Influenza Type A (PCR) NEGATIVE (Negative) Influenza Type B (PCR) NEGATIVE (Negative) RSV RNA Qual (PCR) NEGATIVE (Negative) SARS-CoV-2 RNA (RT-PCR) NEGATIVE (Negative) Independent Interpretation I performed an independent interpretation of an: Plain X-Ray Discharge Plan Discharge Clinical Impression: Asthma with acute exacerbation Patient Disposition: Home, Self-Care Instructions: Asthma (ED) Additional Instructions: Use inhaler and nebulizing treatment Prednisone as prescribed Prescriptions: New prednisone 20 mg tablet 40 mg PO DAILY Qty: 10 0RF No Action montelukast 10 mg tablet 10 mg PO BEDTIME Qty: 90 3RF Incruse Ellipta 62.5 mcg/actuation blister with device 1 inh PO DAILY Qty: 90 3RF budesonide-formoterol [Symbicort] 160-4.5 mcg/actuation HFA aerosol inhaler 2 puff PO BID Qty: 30.6 3RF cetirizine 10 mg tablet 10 mg PO DAILY 30 Days Qty: 30 11RF Trelegy Ellipta 200-62.5-25 mcg blister with device 1 inh inhalation DAILY 30 Days Qty: 60 12RF albuterol sulfate 90 mcg/actuation HFA aerosol inhaler 2 puff PO Q4H PRN (Reason: for wheezing) 30 Days Qty: 1 11RF epinephrine [EpiPen 2-Cristiano] 0.3 mg/0.3 mL auto-injector 0.3 mg IM Q10M PRN (Reason: anaphylaxis) 30 Days Qty: 2 6RF Rx Instructions: for 2 doses albuterol sulfate 2.5 mg /3 mL (0.083 %) solution for nebulization 2.5 mg inhalation Q6H PRN (Reason: shortness of breath or wheezing) 30 Days Qty: 180 11RF (DME) nebulizers [facility] See Rx Instructions .ROUTE Rx Instructions: As directed Breztri Aerosphere 160-9-4.8 mcg/actuation HFA aerosol inhaler 2 inh inhalation BID Qty: 10.7 11RF Interventions: ED Discharge Assessment Last Done: 02/16/24 22:38 Discharge Date/Time: 02/16/24 22:42 Print Language: Indian
--- NOTE | 2024-02-16 20:33 | ECG_ITS ---
Test Reason : SOB Blood Pressure : / mmHG Vent. Rate : 106 BPM Atrial Rate : 106 BPM P-R Int : 138 ms QRS Dur : 082 ms QT Int : 368 ms P-R-T Axes : 074 066 044 degrees QTc Int : 488 ms Sinus tachycardia Otherwise normal ECG When compared with ECG of 08-APR-2023 13:29, Vent. rate has increased BY 44 BPM Referred By: Ade Bello Electronically Signed By:GUILLERMO KIM MD
[2024-02-16 20:37] VITALS: BP 147/93; PULSE 110; RESP 22; TEMP 36.7; O2SAT 96; BMI 32.2
[2024-02-16] MEDS: Albuterol Sulfate 7.5 MG, Albuterol Sulfate (0.083%) 2.5 MG 10 MG INHALE (20:53)
[2024-02-16 20:54] VITALS: PULSE 104; RESP 18; O2SAT 94
[2024-02-16 21:08] LABS: MANUAL DIFF FLAG NO
[2024-02-16] MEDS: methylPREDNISolone Sod Succ 125 MG/2 ML VIAL IVPUSH (21:09)
[2024-02-16] MEDS: Magnesium Sulfate/H2O 2 GM/50 ML PIGGYBACK IV (21:10)
--- NOTE | 2024-02-16 21:15 | PC.NURSE ---
Pt a&ox3, no signs of distress. Pt medicated per mar Plan of care ongoing
[2024-02-16 21:20] LABS: Basophils Percent Auto 0.7 % (0-2); Eosinophils Absolute Auto 0.4 X10*3/uL (0.0-0.4); Eosinophils Percent Auto 5.7 % (0-4); Hematocrit 36.7 % (37.0-47.0); Hemoglobin 12.5 g/dl (12.0-16.0); Imm Gran Abs Auto 0.01 X10*3/uL (0.00-0.03); Imm Gran Pct Auto 0.2 % (0.0-0.4); Lymphocytes Absolute Auto 1.9 X10*3/uL (1.2-4.9); Lymphocytes Percent Auto 30.3 % (20-40); Mean Corpuscular HGB Conc 34.1 g/dl (31.0-35.0); Mean Corpuscular Hemoglobin 30.7 pg (27.0-33.0); Mean Corpuscular Volume 90.2 fL (80.0-98.0); Mean Platelet Volume 8.6 fL (9.4-12.3); Monocytes Absolute Auto 0.4 X10*3/uL (0.1-1.2); Monocytes Percent Auto 6.4 % (2-11); Neutrophils Absolute Auto 3.5 x10*3/uL (2.0-8.3); Neutrophils Percent Auto 56.7 % (45-73); Platelet Count 315 X10*3/uL (160-400); Red Blood Count 4.07 X10*6/uL (4.20-5.50); Red Cell Distribution Width 12.3 % (11.0-16.0); White Blood Count 6.1 X10*3/uL (4.8-10.8)
[2024-02-16 21:21] LABS: Anion Gap 16 (12-20); Blood Urea Nitrogen 12 mg/dL (9-16); Calcium 9.3 mg/dL (8.4-10.2); Carbon Dioxide 22 mmol/L (22-29); Chloride 106 mmol/L (96-108); Creatinine Clr Calc Pharmacy 91.8; Estimated Glomerular Filt Rate > 60; Glucose Random 87 mg/dL (60-115); Sodium 141 mmol/L (135-145)
[2024-02-16 21:40] LABS: Troponin-I High Sensitivity < 2.7 ng/L (<3.5-17.0)
[2024-02-16 21:51] LABS: Influenza A PCR NEGATIVE (Negative); Influenza B PCR NEGATIVE (Negative); Resp Syncy Virus RNA Qual PCR NEGATIVE (Negative); SARS COV2 PCR INHOUSE NEGATIVE (Negative)
[2024-02-16 22:29] VITALS: BP 124/78; PULSE 103; RESP 18; TEMP 36.6; O2SAT 93
[2024-02-16 22:38] VITALS: BP 124/78; PULSE 103; RESP 18; TEMP 36.6; O2SAT 96
== END 2024-02-16 22:42 | disposition home or self-care (01) ==
PROVIDERS: Physician Assistant; Emergency Provider Internal Medicine; PCP Internal Medicine
DX: J45.901 Unspecified asthma with (acute) exacerbation (principal); Z03.818 Encounter for observation for suspected exposure to other biological agents ruled out
CPT/HCPCS: 0241U; 36415; 71045; 80048; 84484; 85025; 93005; 94640; 96365; 96375; 99284; 99285; J2919; J3475

== ENCOUNTER → 2024-02-16 20:33 | Outpatient (BNV) | payer OTHER, SELFPAY | PROVIDERS: Emergency Provider Internal Medicine; PCP Internal Medicine; Visit Provider Internal Medicine Cardiovascular Disease | DX: R06.02 Shortness of breath (principal); R00.0 Tachycardia, unspecified | CPT/HCPCS: 93010 ==

== ENCOUNTER 2024-03-04 15:55 | Outpatient (AMB) | payer OTHER, SELFPAY ==
--- NOTE | 2024-03-04 16:08 | A.OFFPC_ITS ---
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: No Accompanied by: Self / Same As Patient Allergies latex Allergy (Intermediate, Verified 03/04/24 16:28) Rash seafood Allergy (Intermediate, Verified 03/04/24 16:28) tracheal swelling Medication List - Last Reconciled 03/04/24 by Lalita Reese MD albuterol sulfate 2.5 mg (3 mL) inhalation Q6H PRN 30 days albuterol sulfate 90 mcg/actuation 2 puffs PO Q4H PRN 30 days NS vtnpsqebtn-nfctjzls-ohbdaextzv 160-9-4.8 mcg/actuation (Breztri Aerosphere) 2 inhalations inhalation BID cetirizine 10 mg PO DAILY 30 days epinephrine (EpiPen 2-Cristiano) 0.3 mg (0.3 mL) IM Q10M PRN 30 days cvlknqhszvs-pppvorrzq-gplrwaar 200-62.5-25 mcg (Trelegy Ellipta) 1 inh inhalation DAILY 30 days montelukast 10 mg PO BEDTIME nebulizers As directed Symbicort 160-4.5 mcg/actuation (budesonide-formoterol) 2 puffs PO BID NS Tobacco use date assessed: 03/04/24 Dental Screening Dental Screen Date: 03/04/24 Did you have a dental visit in the last 12 months?: Yes Did you have a dental problem in the last 6 months where you did not have access to dental care?: No Was dental information given to patient?: Patient has dentist HPI HPI Comments History of Present Illness Details The patient is a 33-year-old female presenting for an adult physical examination. She recently visited the emergency room due to asthma exacerbated by exposure to snow. In the emergency department, a chest X-ray was performed, which showed no abnormalities. Blood work revealed a slightly low potassium level, attributed potentially to albuterol treatment received for asthma management. Historically, the patient has allergies to latex and seafood. Her asthma maintenance medications include cetirizine, an epinephrine pen as needed, Trilogy, and Singulair. Symbicort treatment was discontinued two months ago. She upholds consistent follow-ups with her healthcare provider. She denies having diabetes or the need for corrective lenses. Her visual acuity is 20/20, and she confirms normal color vision and hearing. [facility] Medical History Eczema Chronic allergic rhinitis Asthma Surgical History No pertinent past surgical history Family History Father Diabetes Mother In good health Maternal Grandmother Glaucoma CVD (cardiovascular disease) Diabetes Hypertension Maternal Grandfather Glaucoma Diabetes Hypertension Family/Other Breast cancer Social History Household Members: Spouse and Children Housing: House Alcohol intake: current Alcohol intake frequency: holidays/special occasions only Alcohol type: beer Patient Tobacco Use Status: Never used Tobacco e-Cigarette/Vaping Use: Never Used Second Hand Smoke Exposure: No service: No 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 1. Little interest or pleasure in doing things: not at all 2. Feeling down, depressed, or hopeless: not at all 3. Trouble falling or staying asleep, or sleeping too much: not at all 4. Feeling tired or having little energy: not at all 5. Poor appetite or overeating: not at all 6. Feeling bad about yourself - or that you are a failure or have let yourself or your family down: not at all 7. Trouble concentrating on things, such as reading the newspaper or watching television: not at all 8. Moving or speaking so slowly that other people could have noticed. Or the opposite - being so fidgety or restless that you have been moving around a lot more than usual: not at all 9. Thoughts that you would be better off or of hurting yourself in some way: not at all Total score: 0 Depression Screening Interpretation: Negative Depression Screening Done: Yes 13364 - PHQ-9 Billing: Yes Source: Developed by Drs. Sarmad Lewis, Haritha Bravo, Arden Marcano and colleagues, with an educational get from [employer]. Thrive Questionnaire Date Thrive assessed: 03/04/24 I am a: Patient What is your living situation today?: I have a steady place to live Within the past 12 months, did the food you bought not last and you didn't have the money to get more?: Never true Within the past 12 months, did you worry whether your food would run out before you got money to buy more?: Never true Do you have trouble paying for medicines?: No Do you have trouble getting transportation to medical appointments?: No Do you have trouble paying your heating and electricity bill?: No Do you have trouble taking care of your child, family member or friend?: No Do you have trouble with day-to-day activities such as bathing, preparing meals, shopping, managing finances, etc.?: No Are you currently unemployed and looking for a job?: No Are you interested in more education?: No Please select the resources that you would like help with: None Currently or been in a relationship where the following occur: No concerns reported THRIVE Score: 0 AUDIT C Alcohol Use Questionnaire (AUDIT-C) 1. How often do you have a drink containing alcohol?: Monthly or less 2. How many drinks containing alcohol do you have on a typical day when you are drinking?: 3 or 4 3. How often do you have six or more drinks on one occasion?: Never Total Score: 2 Score Reviewed/Action Taken: No STEPHANIE-7 AMB Questionnaire STEPHANIE-7 Date STEPHANIE - 7 assessed: 03/04/24 Feeling nervous, anxious, or on edge: 0 = Not at all Not being able to stop or control worryin = Not at all Worrying too much about different things: 0 = Not at all Trouble relaxin = Not at all Being so restless that it is hard to sit still: 0 = Not at all Becoming easily annoyed or irritable: 0 = Not at all Feeling afraid as if something awful might happen: 0 = Not at all Total STEPHANIE-7 score (0-4 normal; 5-9 mild; 10-14 moderate; 15-21 severe): 0 Source: Developed by Drs. Sarmad Lewis, Haritha Bravo, Arden Marcano and colleagues, with an educational get from [employer]. STEPHANIE-7 Assessment Billing STEPHANIE-7 Assessment Tool: STEPHANIE-7 Assessment 34869 Review of Systems Const Details: - Respiratory: Reports asthma, denies chronic obstructive pulmonary disease (COPD) - Musculoskeletal: Denies changes in bowel or bladder habits, chest pain, or shortness of breath Physical exam (Primary Care) Vital Signs: Last Vital Signs BP 126/82 03/04/24 16:11 BMI result Body Mass Index 33.4 BMI Assessment/Plan discussion: High BMI High, discussed plan: lifestyle, weight reduction, dietary and physical activity Tobacco/Smoking Status: Tobacco use Status Tobacco use date assessed 03/04/24 03/04/24 16:13 Patient Tobacco Use Status Never used Tobacco 03/04/24 16:13 e-Cigarette/Vaping Use Never Used 03/04/24 16:13 PHQ-9: PHQ-9 Score PHQ-9: Total score 0 03/04/24 16:29 Depression Screening Interpretation: Negative Thrive Assessment: Date of Thrive Assessment Date Thrive assessed 03/04/24 03/04/24 16:13 Currently or been in a relationship where the following occur: No concerns re ported Const Other: General: Cooperative, healthy appearing, comfortable, no acute distress and well developed Orientation: Patient oriented x3 Limitations: No limitations Head: Normal to inspection Ears: Hearing grossly normal bilaterally Nose: Normal external nose present Face and sinus: Normal facial exam Eyes: Appearance normal, both eyes and all related structures. Patient sees 20/20 and can see the colors red, green, and trish. Neck: Normal visual inspection and Yes full ROM Respiratory: Normal respiratory effort and able to speak in complete sentences. Clear to auscultation bilaterally Cardiovascular: Regular rate and rhythm. Normal S1 and S2 GI: Normal to inspection. Soft to palpation and nontender Skin: No rashes or lesions noted Neuro: Patient oriented x3 Extremities: Normal to inspection. Patient has all fingers. Coding Level of Care Code Est Pt Prev Care 18-39y(60931) Diagnoses Physical exam Z00.00 Additional Codes STEPHANIE-7 Assessment Billing - STEPHANIE-7 Assessment Tool: STEPHANIE-7 Assessment 04712 ([id number]) PHQ-9 - 42469 - PHQ-9 Billing: Yes ([id number]) Time Spent (min) 32 Assessment & Plan Assessment & Plan (1) Physical exam: Code(s): Z00.00 - Encounter for general adult medical examination without abnormal findings Category: Medical Plan 1. Ensure regular follow-up for physical examinations and any required screenings.: Patient was informed and verbally consented to the use of an ambient scribe for clinic note documentation during this visit. I discussed with the patient the significance of maintaining asthma control and the impact of albuterol on potassium levels. We reviewed her medication regimen, including the discontinuation of Symbicort and current use of Trilogy and Singulair. It was emphasized that potassium levels should be monitored, given potential hypokalemia. I advised repeating blood work to reassess the patient's potassium level and other parameters, given her past emergency room visit. We confirmed she is up to date with preventive health measures and discussed scheduling the next Tdap immunization for 2025. The patient understands the plan and agrees with the proposed management strategy. Patient Instructions: - Continue prescribed asthma medications and carry the epinephrine pen as needed for allergies. - Monitor for symptoms of low potassium, such as muscle weakness or cramps, and report any such symptoms. - Schedule next physical examination and any necessary tests or screenings as discussed. - Follow a balanced diet and consider dietary sources of potassium. - Avoid exposure to allergens, including latex and seafood, to prevent allergic reactions.
[2024-03-04 16:11] VITALS: BP 126/82; BMI 33.4
== END 2024-03-04 16:41 | disposition home or self-care (01) ==
PROVIDERS: PCP Internal Medicine; Visit Provider Internal Medicine
DX: Z00.00 Encounter for general adult medical examination without abnormal findings (principal)

== ENCOUNTER → 2024-03-04 15:55 | Outpatient (BNVA) | payer OTHER, SELFPAY | PROVIDERS: PCP Internal Medicine; Visit Provider Internal Medicine | DX: Z00.00 Encounter for general adult medical examination without abnormal findings (principal) | CPT/HCPCS: 96127; 99395 ==

== ENCOUNTER 2024-05-15 14:10 | Outpatient (AMB) | payer OTHER, SELFPAY ==
--- NOTE | 2024-05-15 14:19 | MHC.OFFVIS ---
Vital Signs 05/15/24 14:34 Height 5 ft Weight 175 lb BMI 34.2 BP 124/72 Intake Visit Reasons: OPERATIONS ADVISOR annual exam Preparation Department Supervisor: Preparation Department Supervisor Present (Celestina) Accompanied by: Self / Same As Patient Allergies latex Allergy (Intermediate, Verified 05/15/24 14:35) Rash seafood Allergy (Intermediate, Verified 05/15/24 14:35) tracheal swelling HPI Comments Details: She is a premenopausal woman presenting for annual examination. 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 Regular monthly menses x 5-6d. Currently is sexually active. She denies vaginal itching and irritation. STI screening offered; she accepts. She tries to eat healthy and stays active with exercise. Denies family history of breast, ovarian or colon cancer. Last pap smear 2023, negative. [facility] Medical History Eczema Chronic allergic rhinitis Asthma Surgical History No pertinent past surgical history Family History Father Diabetes Mother In good health Maternal Grandmother Glaucoma CVD (cardiovascular disease) Diabetes Hypertension Maternal Grandfather Glaucoma Diabetes Hypertension Family/Other Breast cancer Social History Household Members: Spouse and Children Housing: House Alcohol intake: current Alcohol intake frequency: holidays/special occasions only Alcohol type: beer Patient Tobacco Use Status: Never used Tobacco e-Cigarette/Vaping Use: Never Used Second Hand Smoke Exposure: No service: No 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 Sexual orientation: Straight/Heterosexual Gender identity: Female Cognitive needs: No Hearing needs: No Vision needs: No Female Reproductive History Menstrual Age of Menarche: 10 Duration of menses: 6-7 days Date of last menstrual period: 05/09/24 control method: other (paraguard ) Total pregnancies: 2 Full term: 2 Date of last pap smear: 05/11/23 (negative pap smear, negative hpv) History of abnormal pap smear: No Review of Systems Const All systems reviewed & are unremarkable except as noted in HPI and below Reports as per HPI Eyes Reports no additional complaints ENT Reports no additional complaints Card Reports no additional complaints Resp Reports no additional complaints GI Reports as per HPI and Reports no additional complaints Reports as per HPI Musc Reports no additional complaints Skin/Breast Reports as per HPI Neuro Reports no additional complaints Psych Reports no additional complaints Endo Reports no additional complaints Festus/Lymph Reports no additional complaints Aller/Immun Reports no additional complaints Physical Exam Vital Signs: Last Vital Signs BP 124/72 05/15/24 14:34 BMI result Body Mass Index 34.2 Const General: cooperative, healthy appearing, no acute distress, well developed and alert Orientation/consciousness: patient oriented x3 HEENT Head: Yes normal to inspection Eyes General: appearance normal, both eyes and all related structures Neck Neck: Yes normal visual inspection Thyroid: Thyroid normal Chest Chest palpation & inspection: normal inspection of the chest and other (no puckering, dimpling, peau de orange, retraction, discharge, masses) Breast/axilla inspection: normal inspection of the breasts Breast/axilla palpation: normal palpation of the breasts Resp Effort & Inspection: normal respiratory effort GI Inspection: Yes normal to inspection Palpation (GI): Soft to palpation Rectal Exam - Female: deferred General: Yes bladder normal to palpation External Female Exam: normal external appearance and normal appearance of the urethra Speculum Exam - Vagina: normal appearance of the vagina, normal palpation and normal vaginal discharge Speculum Exam - Cervix: normal appearance of the cervix, normal palpation and Other cervical findings present (IUD strings at the os) Bimanual exam- vagina & uterus: normal bimanual exam, normal palpation, uterine size normal, bladder normal to palpation, normal palpation and non-tender Bimanual Exam- Adnexa, other: no masses Skin General skin exam: no rashes or lesions noted Rashes: no rashes Neuro General: patient oriented x3 Cognition (Neuro): normal cognition Extrem General: Yes normal to inspection Psych Attitude: cooperative Thought process: Normal thought process present Assessment & Plan Assessment & Plan (1) Encounter for well woman exam with routine gynecological exam: Code(s): Z01.419 - Encounter for gynecological examination (general) (routine) without abnormal findings Category: Medical Plan Discussed: Current recommendations for pap smears per ASCCP guidelines. Breast awareness and periodic breast exams. Maintain a healthy lifestyle including a well balanced diet and routine exercise. GC chlamydia and BV panel obtained, did not declines having STD blood work drawn. Scheduled ParaGard IUD insertion with the 1st 5 days of her next menstrual cycle, pre-procedure medication reviewed advised to take 3 Advil with food and fluids 1 hour before her appointment time. Patient verbalizes understanding and agrees to the plan of care. She was given opportunity to ask questions and all questions were answered to the best of my ability. RTO in one year for annual technology applications engineer examination. This note is constructed using voice recognition software. While every effort has been made to ensure accuracy, yeast pumper errors may have been included. Coding Level of Care Code Est Pt Prev Care 18-39y(62310) Diagnoses Encounter for well woman exam with routine gynecological exam Z01.419
[2024-05-15 14:34] VITALS: BP 124/72; BMI 34.2
== END 2024-05-15 15:01 | disposition home or self-care (01) ==
LOC: HO.HWS 14:10
PROVIDERS: PCP Internal Medicine; Visit Provider Advanced Practice Midwife
DX: Z01.419 Encounter for gynecological examination (general) (routine) without abnormal findings (principal)
CPT/HCPCS: 99395; 99459

== ENCOUNTER 2024-05-15 14:10 | Outpatient (REF) | payer OTHER, SELFPAY ==
[2024-05-16 05:25] LABS: CT PCR NOT DETECTED (Not Detect.); NG PCR NOT DETECTED (Not Detect.)
[2024-05-16 13:25] LABS: Bacterial Vaginosis PCR NEGATIVE (Negative); Candida Group PCR NOT DETECTED (Not Detect); Candida glab krusei PCR NOT DETECTED (Not Detect); Trichomonas vaginalis PCR NOT DETECTED (Not Detect)
== END 2024-05-15 14:11 | disposition home or self-care (01) ==
LOC: HO.LNP 14:10
PROVIDERS: PCP Internal Medicine; Visit Provider Advanced Practice Midwife
DX: Z01.419 Encounter for gynecological examination (general) (routine) without abnormal findings (principal)
CPT/HCPCS: 81515; 87491; 87591; 99395; 99459

== ENCOUNTER 2024-07-07 15:40 | Outpatient (AMB) | payer OTHER, SELFPAY ==
--- NOTE | 2024-07-07 15:47 | A.OFFVIS_ITS ---
Vital Signs 07/07/24 15:48 Height 5 ft Weight 176 lb 5.917 oz BMI 34.4 BP 124/66 Blood Pressure Location Rt brachial Position Sitting Pulse 68 Pulse Source Pulse Oximeter Pulse Oximetry (%) 98 Oxygen Delivery Method Room Air Intake Visit Reasons: Asthma Allergies latex Allergy (Intermediate, Verified 07/07/24 15:49) Rash seafood Allergy (Intermediate, Verified 07/07/24 15:49) tracheal swelling HPI Comments Details: The patient is a 34-year-old woman here for pulmonary follow-up visit. Overall the patient has been doing well. She does have significant allergic asthma moderately persistent. She has been on the long-acting beta agonist inhaled cortical steroid and also long-acting muscarinic antagonist. She does require her short-acting beta agonists several times a week anyway. I am concerned now with the spring season coming due to her significant allergies. She did follow- up with Allergy immunology. She was supposed to go back and get tested was skin tested. However she never was called. She make an effort to call to see was going on. She may be a great candidate for allergy shots. She can also consider biologic therapies if her symptoms are worsening. 02/03/2021 the patient is here for a pulmonary follow-up visit. The patient overall has been doing better. She does have significant asthma significant allergies. Her allergy testings were very abnormal. She did follow-up with an workers compensation claims analyst. She did not want any allergy shots at this time. We did talk about potential biologic therapy such as Dupixent which may be helpful in treating her severe persistent asthma in addition to her eczema. The patient does have chronic rhinitis and postnasal drip moderate in severity. Does have a cough with it. We will optimize her allergy therapy. if the patient continues to be symptomatic after optimizing respiratory therapy then we can consider biologic therapy read both her eosinophils were elevated and her allergy testing was very abnormal with an elevated IgE level. I do take Dupixent may be a good option for her. In the meantime she is going to continue with current respiratory regimen. She is responding well to the Symbicort and Incruse. She continues with the Zyrtec in addition to the singular. Will add Astelin nasal spray and we did review the instructions on how to use the Neti bottle. Unfortunately she has significant allergies to dogs. She does have a dog at home but is a family pet and she cannot give more way. Therefore she tries to stay away from the dog. She does have an EpiPen available for any severe episodes of bronchospasms. 01/01/2024 the patient is here for a pulmonary follow-up visit. The patient has been lost to follow-up. She has had significant allergies and asthma. She has been on Symbicort and also Singulair. Seems like her symptoms are getting worse and she needs a refill so she had to make an appointment. Since we last spoke we did refer her to an workers compensation claims analyst because of her significant allergies for allergy shots and potential biologic therapy. However, after she met with them was too much time commitment and she could not commit at the time so she opted not to. The patient does have significant allergies. She does carry an EpiPen. The patient will have additional blood work to assess her allergy level. She c ontinues to have symptoms on a daily basis and requires a rescue inhaler on a daily basis for her severe persistent asthma. I do believe she would be a great candidate for Dupixent specially since she has allergic dermatitis, chronic rhinitis and also severe persistent asthma. She has been maximizing respiratory therapy and has required prednisone. Therefore, at this point will go ahead and request blood work and will going to look into starting her likely in Dupixent. 07/07/2024 the patient is here for a pulmonary follow-up visit. The patient continues to struggle. The Trelegy inhaler has not been as helpful as before. Izabel was then covered. So she would like to go back on Symbicort and will go ahead and start her on Spiriva. However, we understand that she has severe asthma. She has symptoms every night. She has had to use her nebulizer treatments because the inhalers she is not enough. She does carry an EpiPen but she has never had to use it for her asthma. We did talk about if her symptoms do not improve after the nebulizer is something she can consider. If she does use her EpiPen she will need to go to the hospital though. In the meantime the patient did have blood work with a an elevated IgE of 995 and also elevated eosinophils consistent with eosinophilic asthma. The patient also has atopic dermatitis and also has significant chronic rhinitis. In view of her severe asthma atopic dermatitis in significant elevation both in the IgE and eosinophils she will be a great candidate for Dupixent. Will go ahead and send Dupixent to the pharmacy to see if it improved with the insurance company. I know that by starting Dupixent her respiratory symptoms will subside significantly and her quality of life will also improve. Will follow-up in 3-4 months. If she has any issues prior to that she will call for an earlier assessment. [facility] Medical History Eczema Chronic allergic rhinitis Asthma Surgical History No pertinent past surgical history Family History Father Diabetes Mother In good health Maternal Grandmother Glaucoma CVD (cardiovascular disease) Diabetes Hypertension Maternal Grandfather Glaucoma Diabetes Hypertension Family/Other Breast cancer Social History Household Members: Spouse and Children Housing: House Alcohol intake: current Alcohol intake frequency: holidays/special occasions only Alcohol type: beer Patient Tobacco Use Status: Never used Tobacco e-Cigarette/Vaping Use: Never Used Second Hand Smoke Exposure: No service: No 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 Sexual orientation: Straight/Heterosexual Gender identity: Female Cognitive needs: No Hearing needs: No Vision needs: No Female Reproductive History Menstrual Age of Menarche: 10 Review of Systems Const Denies night sweats ENT Denies change in voice, Denies lip swelling, Denies mouth pain, Reports nasal congestion, Reports nasal discharge, Reports post nasal drip and Denies tongue swelling Card Denies chest pain Resp Reports cough and Reports wheezing GI Denies abdominal pain Musc Denies no additional complaints Skin/Breast Reports rash Neuro Denies Neuro-related abnormal movements Psych Denies no additional complaints Festus/Lymph Denies easy bleeding and Denies lymphadenopathy Aller/Immun Denies lip swelling, Denies tongue swelling and Reports wheezing Physical Exam Vital Signs: Last Vital Signs Pulse 68 07/07/24 15:48 BP 124/66 07/07/24 15:48 Pulse Ox 98 07/07/24 15:48 Oxygen Delivery Method Room Air 07/07/24 15:48 BMI result Body Mass Index 34.4 Const General: alert HEENT General nose exam: Abnormal mucous membranes and turbinates present boggy and erythematous and no nasal polyps Neck Neck: Yes normal visual inspection, Yes full ROM and Yes no lymphadenopathy Chest Chest palpation & inspection: normal inspection of the chest Resp Effort & Inspection: prolonged expiratory phase Auscultation: wheezes and diminished lung sounds Cardio Rate: regular rate Rhythm: regular rhythm Heart sounds: S1 normal heart sound present and S2 normal heart sound present GI Palpation (GI): Soft to palpation and nontender Auscultation: normal bowel sounds General: Yes no CVA tenderness Back/Spine/Pelvis Back: no CVA tenderness Skin General skin exam: rashes and/or lesions noted Assessment & Plan Assessment & Plan (1) Chronic allergic rhinitis: Code(s): J30.9 - Allergic rhinitis, unspecified Category: Medical (2) Asthma: Comment: duplicate Code(s): J45.909 - Unspecified asthma, uncomplicated Category: Medical Qualifiers: Asthma complication type: uncomplicated Asthma persistence: persistent Asthma severity: moderate Qualified Code(s): J45.40 - Moderate persistent asthma, uncomplicated (3) Eczema: Code(s): L30.9 - Dermatitis, unspecified Category: Medical Qualifiers: Eczema type: flexural Qualified Code(s): L20.82 - Flexural eczema Plan Continue fluticasone nasal spray continue Zyrtec continue montelukast start Symbicort and Spiriva stop Trelegy (not helpful)i short acting beta agonist as needed start Dupixent for her severe asthma/actopic dermatitis follow-up in 4-6 months Medications: New budesonide-formoterol 160-4.5 mcg/actuation 2 puffs inhalation BID 10.2 grams 11RF 30 days J44.89 - Other specified chronic obstructive pulmonary disease tiotropium bromide 2.5 mcg/actuation (Spiriva Respimat) 2 puffs inhalation DAILY 1 ea 11RF 30 days Refilled albuterol sulfate 2.5 mg (3 mL) inhalation Q6H PRN 180 mL 11RF shortness of breath or wheezing 30 days Discontinued dhkmiwyxoya-zqjhskmyf-krwewbrz 200-62.5-25 mcg (Trelegy Ellipta) Discontinued Reason: Doctor's Order 1 inh inhalation DAILY 30 days 60 ea 12RF Coding Level of Care Code Est Pt Level 4 (14400) Diagnoses Chronic allergic rhinitis J30.9 Moderate persistent asthma without complication J45.40 Asthma complication type: uncomplicated Asthma persistence: persistent Asthma severity: moderate Flexural eczema L20.82 Eczema type: flexural Time Spent (min) 16
[2024-07-07 15:48] VITALS: BP 124/66; PULSE 68; O2SAT 98; BMI 34.4
== END 2024-07-07 16:10 | disposition home or self-care (01) ==
LOC: HO.HPS 15:40
PROVIDERS: PCP Internal Medicine; Visit Provider Hospitalist
DX: J30.9 Allergic rhinitis, unspecified (principal); J45.40 Moderate persistent asthma, uncomplicated; L20.82 Flexural eczema
CPT/HCPCS: 99214

== ENCOUNTER → 2024-07-07 15:40 | Outpatient (BNVA) | payer OTHER, SELFPAY | PROVIDERS: PCP Internal Medicine; Visit Provider Hospitalist | DX: J45.40 Moderate persistent asthma, uncomplicated (principal); J44.89 Other specified chronic obstructive pulmonary disease; J30.9 Allergic rhinitis, unspecified; L20.82 Flexural eczema | CPT/HCPCS: 99212 ==

== ENCOUNTER 2024-07-16 15:00 | Outpatient (AMB) | payer OTHER, SELFPAY ==
--- NOTE | 2024-07-16 15:11 | MHC.OFFVIS ---
Vital Signs 07/16/24 15:14 Height 5 ft Weight 176 lb BMI 34.4 BP 114/70 Intake Visit Reasons: Paragard exchange/pt supplied Trade Union Official: Trade Union Official Present (Ramya) Allergies latex Allergy (Intermediate, Verified 07/16/24 15:11) Rash seafood Allergy (Intermediate, Verified 07/16/24 15:11) tracheal swelling Is last menstrual period known: Yes Last menstrual period: 07/08/24 HPI Comments Details: Patient is here today for ParaGard IUD exchange. She currently has a menstrual cycle and a negative UPT. [facility] Medical History Presence of IUD Eczema Chronic allergic rhinitis Asthma Surgical History No pertinent past surgical history Family History Father Diabetes Mother In good health Maternal Grandmother Glaucoma CVD (cardiovascular disease) Diabetes Hypertension Maternal Grandfather Glaucoma Diabetes Hypertension Family/Other Breast cancer Social History Household Members: Spouse and Children Housing: House Alcohol intake: current Alcohol intake frequency: holidays/special occasions only Alcohol type: beer Patient Tobacco Use Status: Never used Tobacco e-Cigarette/Vaping Use: Never Used Second Hand Smoke Exposure: No service: No 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 Sexual orientation: Straight/Heterosexual Gender identity: Female Cognitive needs: No Hearing needs: No Vision needs: No Female Reproductive History Menstrual Age of Menarche: 10 Date of last menstrual period: 07/08/24 Review of Systems Const All systems reviewed & are unremarkable except as noted in HPI and below Physical Exam Vital Signs: Last Vital Signs BP 114/70 07/16/24 15:14 BMI result Body Mass Index 34.4 Const General: cooperative, healthy appearing and no acute distress Orientation/consciousness: patient oriented x3 GI Inspection: Yes normal to inspection Palpation (GI): Soft to palpation and Other GI palpation findings present (Nontender) Rectal Exam - Female: visual inspection normal General: Yes bladder normal to palpation External Female Exam: normal appearance of the urethra Speculum Exam - Vagina: normal appearance of the vagina, normal palpation and normal vaginal discharge Speculum Exam - Cervix: normal appearance of the cervix, normal palpation and Other cervical findings present (IUD strings at the os) Bimanual exam- vagina & uterus: normal bimanual exam, normal palpation, uterine size normal, bladder normal to palpation, normal palpation, uterine shape normal and non-tender Bimanual Exam- Adnexa, other: normal adnexae Neuro General: patient oriented x3 Office Procedures IUD Insert/Removal Details [id number] Insertion Procedure code (CPT) selection complete Contraception Insert/Removal Details Details: The patient is here today for a ParaGard IUD removal/ reinsertion-Patient is supplied. She was counseled on the side effects including: menstrual cycle changes, pain, infection, bleeding, or expulsion. A urine test was completed and was negative. She was consented for the IUD insertion and has signed the consent form. All questions were answered. The patient was placed in the dorsal lithotomy position. A speculum was inserted vaginally and the cervix and strings were visualized at the os. The cervix and vagina were cleansed with Hibiclens solution. A ring forcep was utilized, and the patient was asked to give a deep cough while the strings were grasped and gently tugged at the same time, removing the IUD device intact. A single toothed tenaculum was applied to the cervix for stabilization, and the uterus was sounded to 8 cm. The device was inserted and released with a gentle motion. Bleeding from the tenaculum sites and the procedure were minimal. The strings were trimmed to 3cm. All of the equipment was removed and the bimanual was normal, no tip was palpable at the cervical os. The patient tolerated the procedure well and left the office in good condition. Post IUD Insertion Care: There may be some post insertion bleeding for several days that is usually light and can turn to a light brown or pink in color. Mild cramping may occur. Nothing in the vagina including: tampons, douching or intimacy for several days. You may take an over the counter mild analgesia like Tylenol or Advil (if no allergies), per the manufacturers recommendations on dosing and frequency. Follow the directions completely. Call the office if any: fever (over 100.4), flu like symptoms, abdominal pain, worsening cramping not resolved with over the counter medications, foul smelling vaginal odor, signs of infected appearing discharge, or heavy bleeding. Use a condom for a back up method if indicated for 7 days. Always use a condom for STI prevention; IUD's are not protective against STD's. Return to the office in 4-6 weeks for IUD recheck. This note is constructed using voice recognition software. While every effort has been made to ensure accuracy, poured pipe maker errors may have been included. 67781 - Insertion and Removal Office Meds ParaGard T 380A 380 square mm intrauterine device Performing Provider: Stephanie Beck CNM Performing Location: [facility] Administered by: MCKENNA Dean on 07/16/24 15:43 Dose Route Admin Location Dispensed Lot Number Expiration Date [facility] [employer] T[employer] 1 device intrauterine 1 device [id number] 10/23/26 [address]-2 [employer]ERS[employer] Results AMB Test Urine AMB Test Urine Negative Last Edit by MCKENNA Dean on 07/16/24 15:16 Results Reviewed Results Reviewed: Laboratory Last Values [facility] Negative 07/16/24 15:16 Assessment & Plan Assessment & Plan (1) Encounter for IUD insertion: Code(s): Z30.430 - Encounter for insertion of intrauterine contraceptive device Plan See procedure notes. Follow up in 4-6 weeks IUD check. This note is constructed using voice recognition software. While every effort has been made to ensure accuracy, poured pipe maker errors may have been included. Orders: Orders AMB HCG Urine Test Today Z32.02 - Encounter for test, result negative AMB IUD Insertion/Removal - Patient Supply Today Z30.430 - Encounter for insertion of intrauterine contraceptive device Coding Level of Care Code Procedure Only Diagnoses Encounter for IUD insertion Z30.430 CPT Codes Details - CPT: 44043-ZOQ Insertion ([id number]) Details - Contraception: 21940 - Insertion and Removal ([id number])
[2024-07-16 15:14] VITALS: BP 114/70; BMI 34.4
== END 2024-07-16 18:42 | disposition home or self-care (01) ==
LOC: HO.HWS 15:01
PROVIDERS: PCP Internal Medicine; Visit Provider Advanced Practice Midwife
DX: Z30.430 Encounter for insertion of intrauterine contraceptive device (principal); Z32.02 Encounter for pregnancy test, result negative
CPT/HCPCS: 58300; 58301

== ENCOUNTER → 2024-07-16 15:00 | Outpatient (BNVA) | payer OTHER, SELFPAY | PROVIDERS: PCP Internal Medicine; Visit Provider Advanced Practice Midwife | DX: Z30.433 Encounter for removal and reinsertion of intrauterine contraceptive device (principal) | CPT/HCPCS: 58300; 58301; 81025; J7300 ==

== ENCOUNTER 2024-08-01 14:20 | Outpatient (AMB) | payer OTHER, SELFPAY ==
[2024-08-01 15:12] VITALS: PULSE 75; O2SAT 99; BMI 34.0
--- NOTE | 2024-08-01 15:12 | MHC.OFFVIS ---
Vital Signs 08/01/24 15:12 Height 5 ft Weight 174 lb 2.643 oz BMI 34.0 Pulse 75 Pulse Source Pulse Oximeter Pulse Oximetry (%) 99 Oxygen Delivery Method Room Air Intake Visit Reasons: dupixent teaching Allergies latex Allergy (Intermediate, Verified 08/01/24 15:12) Rash seafood Allergy (Intermediate, Verified 08/01/24 15:12) tracheal swelling Medication List - Last Reconciled 08/01/24 by Stephanie Farley LPN albuterol sulfate 90 mcg/actuation 2 puffs PO Q4H PRN 30 days NS albuterol sulfate 2.5 mg (3 mL) inhalation Q6H PRN 30 days budesonide-formoterol 160-4.5 mcg/actuation 2 puffs inhalation BID 30 days cetirizine 10 mg PO DAILY 30 days dupilumab (Dupixent) loading dose: 600mg SC x 1, then 300mg SC every 2 weeks 4 weeks epinephrine (EpiPen 2-Cristiano) 0.3 mg (0.3 mL) IM Q10M PRN 30 days montelukast 10 mg PO BEDTIME nebulizers As directed tiotropium bromide 2.5 mcg/actuation (Spiriva Respimat) 2 puffs inhalation DAILY 30 days HPI Comments Details: Maryjane is here for a Dupixent teach she was educated on hand washing, injection preparation, administration, and disposal.? She was able to return demonstrate proper technique for hand washing, injection preparation, administration and disposal of needle and states she has no questions at this time. Medication Dupixent 300mg/2mL autoinjector (patient?s own meds) Loading dose of 600mg given by the patient in 2 SQ injections; injection #1 R thigh;? injection #2 L thigh? Lot# [id number] expires 04/25/2026. Patient aware her next injection is in 15 days. Nurse visit only.? [facility] Medical History Presence of IUD Eczema Chronic allergic rhinitis Asthma Surgical History No pertinent past surgical history Family History Father Diabetes Mother In good health Maternal Grandmother Glaucoma CVD (cardiovascular disease) Diabetes Hypertension Maternal Grandfather Glaucoma Diabetes Hypertension Family/Other Breast cancer Social History Household Members: Spouse and Children Housing: House Alcohol intake: current Alcohol intake frequency: holidays/special occasions only Alcohol type: beer Patient Tobacco Use Status: Never used Tobacco e-Cigarette/Vaping Use: Never Used Second Hand Smoke Exposure: No service: No 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 Sexual orientation: Straight/Heterosexual Gender identity: Female Cognitive needs: No Hearing needs: No Vision needs: No Female Reproductive History Menstrual Age of Menarche: 10 Physical Exam Vital Signs: Last Vital Signs Pulse 75 08/01/24 15:12 Pulse Ox 99 08/01/24 15:12 Oxygen Delivery Method Room Air 08/01/24 15:12 BMI result Body Mass Index 34.0 Assessment & Plan Assessment & Plan (1) Asthma: Comment: duplicate Code(s): J45.909 - Unspecified asthma, uncomplicated Category: Medical Qualifiers: Asthma complication type: uncomplicated Asthma persistence: persistent Asthma severity: moderate Qualified Code(s): J45.40 - Moderate persistent asthma, uncomplicated Plan Dupixent Coding Level of Care Code Established Pt Est Pt Level 1 (04777) Patient Type Established Diagnoses Moderate persistent asthma without complication J45.40 Asthma complication type: uncomplicated Asthma persistence: persistent Asthma severity: moderate Comment NURSE VISIT ONLY
== END 2024-08-01 14:33 | disposition home or self-care (01) ==
LOC: HO.HPS 14:21
PROVIDERS: PCP Internal Medicine; Visit Provider Hospitalist
DX: J45.40 Moderate persistent asthma, uncomplicated (principal)

== ENCOUNTER → 2024-08-01 14:20 | Outpatient (BNVA) | payer OTHER, SELFPAY | PROVIDERS: PCP Internal Medicine; Visit Provider Hospitalist | DX: J45.40 Moderate persistent asthma, uncomplicated (principal) | CPT/HCPCS: 99211 ==

== ENCOUNTER 2024-08-27 15:27 | Outpatient (AMB) | payer OTHER, SELFPAY ==
--- NOTE | 2024-08-27 15:31 | A.OFFVIS_ITS ---
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 She had a ParaGard exchange on 07/16/2024. She has had 2 cycles and reports she had no issues with her cycle and no excessive bleeding or any discomfort. She is able to feel the strings. She has no other symptoms or concerns today. [facility] Medical History Presence of IUD Eczema Chronic allergic rhinitis Asthma Surgical History No pertinent past surgical history Family History Father Diabetes Mother In good health Maternal Grandmother Glaucoma CVD (cardiovascular disease) Diabetes Hypertension Maternal Grandfather Glaucoma Diabetes Hypertension Family/Other Breast cancer Social History Household Members: Spouse and Children Housing: House Alcohol intake: current Alcohol intake frequency: holidays/special occasions only Alcohol type: beer Patient Tobacco Use Status: Never used Tobacco e-Cigarette/Vaping Use: Never Used Second Hand Smoke Exposure: No service: No 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 Sexual orientation: Straight/Heterosexual Gender identity: Female Cognitive needs: No Hearing needs: No Vision needs: No Female Reproductive History Menstrual Age of Menarche: 10 Duration of menses: 3-5 days Date of last menstrual period: 08/12/24 control method: copper IUCD (Paragard) Review of Systems Const All systems reviewed & are unremarkable except as noted in HPI and below Physical Exam Vital Signs: Last Vital Signs BP 126/82 08/27/24 15:37 BMI result Body Mass Index 34.6 Const General: cooperative, healthy appearing and no acute distress Orientation/consciousness: patient oriented x3 GI Inspection: Yes normal to inspection Palpation (GI): Soft to palpation and Other GI palpation findings present (Nontender) Rectal Exam - Female: visual inspection normal General: Yes bladder normal to palpation External Female Exam: normal appearance of the urethra Speculum Exam - Vagina: normal appearance of the vagina, normal palpation and normal vaginal discharge Speculum Exam - Cervix: normal appearance of the cervix, normal palpation and Other cervical findings present (IUD strings at the os, no tip palpated) Bimanual exam- vagina & uterus: normal bimanual exam, normal palpation, uterine size normal, bladder normal to palpation, normal palpation, uterine shape normal and non-tender Bimanual Exam- Adnexa, other: normal adnexae Neuro General: patient oriented x3 Assessment & Plan Assessment & Plan (1) IUD surveillance: Code(s): Z30.431 - Encounter for routine checking of intrauterine contraceptive device Plan Normal exam today. Advised to call if there is any cycle changes or concerns with the prolonged bleeding. Annual exam is scheduled for April 2025. The patient expressed understanding and agreement with the plan of care. All of her questions and concerns were addressed to the best of my ability. This note is constructed using voice recognition software. While every effort has been made to ensure accuracy, store deli manager errors may have been included. Coding Level of Care Code Est Pt Level 2 (51999) Diagnoses IUD surveillance Z30.431
[2024-08-27 15:37] VITALS: BP 126/82; BMI 34.6
== END 2024-08-27 16:15 | disposition home or self-care (01) ==
LOC: HO.HWS 15:27
PROVIDERS: PCP Internal Medicine; Visit Provider Advanced Practice Midwife
DX: Z30.431 Encounter for routine checking of intrauterine contraceptive device (principal)
CPT/HCPCS: 99212

== ENCOUNTER → 2024-08-27 15:27 | Outpatient (BNVA) | payer OTHER, SELFPAY | PROVIDERS: PCP Internal Medicine; Visit Provider Advanced Practice Midwife | DX: Z30.431 Encounter for routine checking of intrauterine contraceptive device (principal) | CPT/HCPCS: 99212 ==

== ENCOUNTER 2025-03-12 15:49 | Outpatient (AMB) | payer OTHER, SELFPAY ==
--- NOTE | 2025-03-12 16:05 | MHC.PC.OV ---
Vital Signs 03/12/25 16:07 Height 5 ft Weight 186 lb 2 oz BMI 36.3 BP 120/80 Blood Pressure Location Lt brachial Position Sitting Pulse 74 Pulse Source Pulse Oximeter Temp 97.3 F Temp Source Temporal Artery Scan Pulse Oximetry (%) 99 Oxygen Delivery Method Room Air Intake Visit Reasons: pe Intake Note: Patient is here today for a physical. 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: Not Required per policy Accompanied by: Self / Same As Patient Allergies latex Allergy (Intermediate, Verified 03/12/25 16:21) Rash seafood Allergy (Intermediate, Verified 03/12/25 16:21) tracheal swelling Medication List - Last Reconciled 03/12/25 by Lalita Reese MD albuterol sulfate 90 mcg/actuation 2 puffs PO Q4H PRN 30 days NS albuterol sulfate 2.5 mg (3 mL) inhalation Q6H PRN 30 days budesonide-formoterol 160-4.5 mcg/actuation 2 puffs inhalation BID 30 days cetirizine 10 mg PO DAILY 30 days copper (ParaGard T 380A) intrauterine dupilumab (Dupixent) loading dose: 600mg SC x 1, then 300mg SC every 2 weeks 4 weeks epinephrine (EpiPen 2-Cristiano) 0.3 mg (0.3 mL) IM Q10M PRN 30 days montelukast 10 mg PO BEDTIME nebulizers As directed tiotropium bromide 2.5 mcg/actuation (Spiriva Respimat) 2 puffs inhalation DAILY 30 days Tobacco use date assessed: 03/12/25 Dental Screening Dental Screen Date: 03/12/25 Did you have a dental visit in the last 12 months?: Yes Did you have a dental problem in the last 6 months where you did not have access to dental care?: No Was dental information given to patient?: Patient has dentist HPI HPI Comments History of Present Illness Details The patient is a 34-year-old female who presented for a physical examination. Her last blood work was performed last year, and she had a Pap smear done last year. The patient has a history of an unspecified respiratory disease. She has allergies to latex and seafood. Her current medications include an albuterol inhaler as needed, another daily inhaler, cetirizine, Dupixent, montelukast, and Spiriva. She also has an EpiPen for as-needed use. For contraception, she uses a Paragard IUD. Her past medical history is negative for diabetes, epilepsy, and she does not have a cardiac defibrillator. She has had no prior surgeries. Her mother and father are alive, and her father has a history of diabetes. She denies a history of smoking, depression, and use of narcotics. She reports drinking beer on holidays and special occasions. [facility] [place] Medical History Presence of IUD Eczema Chronic allergic rhinitis Asthma Surgical History No pertinent past surgical history Family History Father Diabetes Mother In good health Maternal Grandmother Glaucoma CVD (cardiovascular disease) Diabetes Hypertension Maternal Grandfather Glaucoma Diabetes Hypertension Family/Other Breast cancer Social History Household Members: Spouse and Children Housing: House Alcohol intake: current Alcohol intake frequency: holidays/special occasions only Alcohol type: beer Patient Tobacco Use Status: Never used Tobacco e-Cigarette/Vaping Use: Never Used Second Hand Smoke Exposure: No service: No 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 1. Little interest or pleasure in doing things: not at all 2. Feeling down, depressed, or hopeless: not at all 3. Trouble falling or staying asleep, or sleeping too much: not at all 4. Feeling tired or having little energy: not at all 5. Poor appetite or overeating: not at all 6. Feeling bad about yourself - or that you are a failure or have let yourself or your family down: not at all 7. Trouble concentrating on things, such as reading the newspaper or watching television: not at all 8. Moving or speaking so slowly that other people could have noticed. Or the opposite - being so fidgety or restless that you have been moving around a lot more than usual: not at all 9. Thoughts that you would be better off or of hurting yourself in some way: not at all Total score: 0 Depression Screening Interpretation: Negative Depression Screening Done: Yes 93113 - PHQ-9 Billing: Yes Source: Developed by Drs. Sarmad Lewis, Haritha Bravo, Arden Marcano and colleagues, with an educational get from [employer]. Thrive Questionnaire Date Thrive assessed: 03/12/25 I am a: Patient What is your living situation today?: I have a steady place to live Within the past 12 months, did the food you bought not last and you didn't have the money to get more?: I choose not to answer this question Within the past 12 months, did you worry whether your food would run out before you got money to buy more?: I choose not to answer this question Do you have trouble paying for medicines?: I choose not to answer this question Do you have trouble getting transportation to medical appointments?: No Do you have trouble paying your heating and electricity bill?: I choose not to answer this question Do you have trouble taking care of your child, family member or friend?: No Do you have trouble with day-to-day activities such as bathing, preparing meals, shopping, managing finances, etc.?: No Are you currently unemployed and looking for a job?: No Are you interested in more education?: I choose not to answer this question Please select the resources that you would like help with: None Currently or been in a relationship where the following occur: No concerns reported THRIVE Score: 0 AUDIT C Alcohol Use Questionnaire (AUDIT-C) 1. How often do you have a drink containing alcohol?: Monthly or less 2. How many drinks containing alcohol do you have on a typical day when you are drinking?: 3 or 4 3. How often do you have six or more drinks on one occasion?: Less than monthly Total Score: 3 STEPHANIE-7 AMB Questionnaire STEPHANIE-7 Date STEPHANIE - 7 assessed: 03/12/25 Feeling nervous, anxious, or on edge: 0 = Not at all Not being able to stop or control worryin = Not at all Worrying too much about different things: 0 = Not at all Trouble relaxin = Not at all Being so restless that it is hard to sit still: 0 = Not at all Becoming easily annoyed or irritable: 0 = Not at all Feeling afraid as if something awful might happen: 0 = Not at all Total STEPHANIE-7 score (0-4 normal; 5-9 mild; 10-14 moderate; 15-21 severe): 0 Source: Developed by Drs. Sarmad Lewis, Haritha Bravo, Arden Marcano and colleagues, with an educational get from [employer]. STEPHANIE-7 Assessment Billing STEPAHNIE-7 Assessment Tool: STEPHANIE-7 Assessment 46175 Review of Systems Const All systems reviewed & are unremarkable except as noted in HPI and below Card Denies chest pain at rest, Denies chest pain with activity, Denies edema, Denies irregular heart rhythm, Denies claudication, Denies dyspnea, Denies dyspnea on exertion, Denies orthopnea, Denies paroxysmal nocturnal dyspnea and Denies slow heart rate Resp Denies cough, Denies dyspnea and Denies dyspnea on exertion GI Denies abdominal pain, Denies change in bowel habits, Denies excessive flatus, Denies nausea and Denies vomiting Denies urinary incontinence, Denies urinary hesitancy and Denies urinary urgency Musc Denies atrophy, Denies deformity and Denies limited range of motion Physical exam (Primary Care) Vital Signs: Last Vital Signs Temp 97.3 F 03/12/25 16:07 Pulse 74 03/12/25 16:07 BP 120/80 03/12/25 16:07 Pulse Ox 99 03/12/25 16:07 Oxygen Delivery Method Room Air 03/12/25 16:07 BMI result Body Mass Index 36.3 Tobacco/Smoking Status: Tobacco use Status Tobacco use date assessed 03/12/25 03/12/25 16:12 Patient Tobacco Use Status Never used Tobacco 03/12/25 16:12 e-Cigarette/Vaping Use Never Used 03/12/25 16:12 PHQ-9: PHQ-9 Score PHQ-9: Total score 0 03/12/25 16:24 Depression Screening Interpretation: Negative Thrive Assessment: Date of Thrive Assessment Date Thrive assessed 03/12/25 03/12/25 16:12 Currently or been in a relationship where the following occur: No concerns reported HENMT Head: Yes normal to inspection, Yes normocephalic and Yes atraumatic Ears: external ears normal Eyes General: appearance normal, both eyes and all related structures Eyelids: Yes eyelids normal Conjunctivae: conjunctivae normal Neck Neck: Yes normal visual inspection and Yes supple Resp Effort & Inspection: normal respiratory effort Auscultation: clear to auscultation bilaterally Cardio Jugular venous distension: no JVD Rate: regular rate Rhythm: regular rhythm Heart sounds: S1 normal heart sound present and S2 normal heart sound present GI Inspection: Yes normal to inspection Palpation (GI): Soft to palpation and nontender Auscultation: normal bowel sounds Skin General skin exam: no rashes or lesions noted Neuro General: no focal motor deficits Extrem General: Yes full ROM Psych Appearance: grossly normal Coding Level of Care Code Est Pt Prev Care 18-39y(22107) Diagnoses Physical exam Z00.00 Additional Codes STEPHANIE-7 Assessment Billing - STEPHANIE-7 Assessment Tool: STEPHANIE-7 Assessment 45934 ([id number]) PHQ-9 - 60234 - PHQ-9 Billing: Yes ([id number]) Time Spent (min) 30 Assessment & Plan Assessment & Plan (1) Physical exam: Code(s): Z00.00 - Encounter for general adult medical examination without abnormal findings Category: Medical Plan Plan 1. Annual Physical Examination A physical exam was conducted. A Pap smear was completed last year. Blood work from last year will be reviewed.
[2025-03-12 16:07] VITALS: BP 120/80; PULSE 74; TEMP 36.3; O2SAT 99; BMI 36.3
== END 2025-03-12 16:33 | disposition home or self-care (01) ==
LOC: HO.HMCH 15:50
PROVIDERS: PCP Internal Medicine; Visit Provider Internal Medicine
DX: Z00.00 Encounter for general adult medical examination without abnormal findings (principal)

== ENCOUNTER → 2025-03-12 15:49 | Outpatient (BNVA) | payer OTHER, SELFPAY | PROVIDERS: PCP Internal Medicine; Visit Provider Internal Medicine | DX: Z00.00 Encounter for general adult medical examination without abnormal findings (principal); E11.9 Type 2 diabetes mellitus without complications; G40.909 Epilepsy, unspecified, not intractable, without status epilepticus | CPT/HCPCS: 96127; 99395 ==